=== PATIENT | female | born 1970 | race Caucasian/White ===

== ENCOUNTER 2016-12-02 22:06 | Emergency (ER) | payer MEDICAID ==
[2016-12-02] MEDS ORDERED: diphenhydrAMINE 50 MG/ML SDV IM ONE (22:18)
[2016-12-02] MEDS ORDERED: methylPREDNISolone Sodium Succinate 125 MG/2 ML SDV IM ONE (22:18)
--- NOTE | 2016-12-02 22:22 | EDM.PDOC ---
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 arm all swollen. also few weeks h/o throat problems Right Upper Arm Pain Score (Numeric/FACES): 3 - Related Data Allergies Allergy/AdvReac Type Severity Reaction Status Date / Time aspirin Allergy Swelling Verified 06/20/16 10:45 Penicillins Allergy Swelling Verified 06/20/16 10:45 tramadol Allergy Cannot Verified 06/20/16 10:45 Remember Home Meds: Home Meds Paliperidone [Invega] 12 mg PO DAILY 12/17/13 [History] buPROPion [Wellbutrin] 450 mg PO DAILY 12/17/13 [History] Albuterol [Proventil HFA] 2 puff INH ASDIRECTED PRN 03/21/15 [History] Benztropine Mesylate 1 mg PO TID 03/21/15 [History] DULoxetine [Cymbalta] 120 mg PO DAILY 03/21/15 [History] Pantoprazole [Protonix] 40 mg PO ACBREAKFAST 03/21/15 [History] QUEtiapine [SEROquel XR] 800 mg PO BEDTIME 03/21/15 [History] tiZANidine [Zanaflex] 8 mg PO QID 03/21/15 [History] Amitriptyline [Elavil] 25 mg PO DAILY 05/22/16 [History] Ferrous Sulfate [Iron] 325 mg PO DAILY 05/22/16 [History] Meloxicam [Mobic] 7.5 mg PO DAILY 05/22/16 [History] busPIRone HCl [busPIRone] 30 mg PO BID 05/22/16 [History] Past Medical History - Past Health History Medical/Surgical History: Denies Medical/Surgical History Cardiovascular History: Reports: Heart Failure Respiratory History: Reports: Asthma, Bronchitis, Recurrent, COPD, Intubation, Previous, Pneumonia, Recurrent Gastrointestinal History: Reports: Cholelithiasis, GERD, Other (See Below) Other Gastrointestinal History: Has diarrhea all the time. 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 Endocrine/Metabolic History: Reports: Obesity/BMI 30+ Hematologic History: Reports: None Immunologic History: Reports: None Oncologic (Cancer) History: Reports: None Dermatologic History: Reports: None - Infectious Disease History Infectious Disease History: Reports: Chicken Pox - Past Surgical History GI Surgical History: Reports: Cholecystectomy, Colonoscopy Other Musculoskeletal Surgeries/Procedures:: Rt. fx. arm Social & Family History - Family History Cardiac: Reports: CAD, Heart Failure, High Cholesterol, Hypertension, [place] Other Cardiac Family History: Dad GI: Reports: Cholelithiasis Psychiatric: Reports: Depression, Suicide Attempt, Other (See Below) Other Psychiatric Family History: entire family Endocrine/Metabolic: Reports: Diabetes, type II, Obesity/MBI 30+ Other Endocrine/Metabolic Family History: Dad and sister. Oncologic: Reports: Breast Other Oncologic Family History: aunt breast , dad stomach ca - Tobacco Use Smoking Status *Q: Current Every Day Smoker Years of Tobacco use: 32 Packs/Tins Daily: 0.5 Second Hand Smoke Exposure: Yes - Caffeine Use Caffeine Use: Reports: Coffee, Energy Drinks, Soda, Tea - Alcohol Use Days Per Week of Alcohol Use: 0 - Recreational Drug Use Recreational Drug Use: No Drug Use in Last 12 Months: No Recreational Drug Type: Reports: Benzodiazepines, Oxycodone, Vicodin Recreational Drug Use Frequency: Patient Refuses To Answer (unable to answer) ED ROS GENERAL - Review of Systems Review Of Systems: ROS reveals no pertinent complaints other than HPI. ED EXAM, ANIMAL BITE - Physical Exam Exam: See Below Exam Limited By: No Limitations General Appearance: Alert, WD/WN, No Apparent Distress Ears: Hearing Grossly Normal Throat/Mouth: Normal Voice, No Airway Compromise, Inflammation Head: Atraumatic Neck: Non-Tender, Full Range of Motion Respiratory/Chest: No Respiratory Distress Cardiovascular: Regular Rate, Rhythm GI/Abdominal: Soft, Non-Tender Extremities: Other (right upper inner arm swollen erythema no lymphangitis, NV nwl) Neurological: Alert, Oriented, Normal Cognition, Normal Gait, No Motor/Sensory Deficits Psychiatric: Normal Affect, Normal Mood Skin Exam: Normal Color, Warm/Dry Course - Vital Signs Last Recorded V/S: Last Vital Signs Temp 36.1 C 12/02/16 22:13 Pulse 87 12/02/16 22:13 Resp 19 12/02/16 22:13 BP 139/76 12/02/16 22:13 Pulse Ox 98 12/02/16 22:13 - Orders/Labs/Meds Orders: Active Orders 24 hr Category Date Time Status CULTURE STREP A CONFIRMATION [RM] Stat Lab 12/02/16 22:16 Results STREP SCRN A RAPID W CULT CONF [RM] Stat Lab 12/02/16 22:16 Results Meds: Medications Discontinued Medications Generic Name Dose Route Start Last Admin Trade Name Freq PRN Reason Stop Dose Admin Diphenhydramine HCl 50 mg 12/02/16 22:18 12/02/16 22:41 Benadryl IM 12/02/16 22:19 50 mg ONETIME ONE Administration Methylprednisolone Sodium Succinate 125 mg 12/02/16 22:18 12/02/16 22:41 Solu-Medrol IM 12/02/16 22:19 125 mg ONETIME ONE Administration - Re-Assessments/Exams Free Text/Narrative Re-Assessment/Exam: 12/02/16 22:57 results discussed with pt. Departure - Departure Time of Disposition: 22:59 Disposition: Home, Self-Care 01 Condition: Good Clinical Impression: Bee sting reaction Qualifiers: Encounter type: initial encounter Injury intent: accidental or unintentional Qualified Code(s): T63.441A - Toxic effect of venom of bees, accidental ( unintentional), initial encounter - Discharge Information Instructions: Insect Bite, [id number] Forms: ED Department Discharge Additional Instructions: 1) continue medications 2) follow up with family doctor 3) recheck as needed rx given; medrol dospak benadryl 50mg bid phenergan codeine syrup qid prn x 4oz - My Orders Last 24 Hours: My Active Orders 12/02/16 22:16 CULTURE STREP A CONFIRMATION [RM] Stat STREP SCRN A RAPID W CULT CONF [RM] Stat - Assessment/Plan Last 24 Hours: My Active Orders 12/02/16 22:16 CULTURE STREP A CONFIRMATION [RM] Stat STREP SCRN A RAPID W CULT CONF [RM] Stat
[2016-12-02 22:28] VITALS: BP 139/76
== END 2016-12-02 23:06 | disposition home or self-care (01) ==
LOC: DL.ED 22:06
DX: T63.441A Toxic effect of venom of bees, accidental (unintentional), initial encounter (principal); I50.9 Heart failure, unspecified; J44.9 Chronic obstructive pulmonary disease, unspecified; K21.9 Gastro-esophageal reflux disease without esophagitis; M19.90 Unspecified osteoarthritis, unspecified site; F32.9 Major depressive disorder, single episode, unspecified; E66.9 Obesity, unspecified; F17.210 Nicotine dependence, cigarettes, uncomplicated; Z90.49 Acquired absence of other specified parts of digestive tract; Z98.890 Other specified postprocedural states; Z79.899 Other long term (current) drug therapy; Z88.0 Allergy status to penicillin; Z88.5 Allergy status to narcotic agent; Z88.6 Allergy status to analgesic agent
CPT/HCPCS: 87081; 87430; 96372; 99283; J1200; J2930

== ENCOUNTER 2017-03-21 13:32 | Emergency (ER) | payer MEDICAID ==
[2017-03-21 13:59] VITALS: BP 125/68
== END 2017-03-21 15:21 | disposition left against medical advice (07) ==
LOC: DL.ED 13:32
DX: Z53.21 Procedure and treatment not carried out due to patient leaving prior to being seen by health care provider (principal)

== ENCOUNTER 2017-03-21 21:50 | Emergency (ER) | payer MEDICAID ==
--- NOTE | 2017-03-21 22:33 | EDM.PDOC ---
ED HPI GENERAL MEDICAL PROBLEM - General Chief Complaint: Skin Complaint Stated Complaint: SPIDER BITE ON LEG, [id number] Time Seen by Provider: 03/21/17 22:00 Source of Information: Reports: Patient, Correction Records History Limitations: Reports: No Limitations - History of Present Illness INITIAL COMMENTS - FREE TEXT/NARRATIVE: Kori reports a spider bite noticed three days ago on March 18. It started as a small bump that has grown in size and is increasingly painful and pruritic with shooting pain aggravated by rubbing on clothing. Her boyfriend squeezed it today and expressed blood but no pus. Denies fever, chills, and malaise. Onset: Gradual Onset Date: 03/18/17 Duration: Getting Worse Location: Reports: Lower Extremity, Left Quality: Reports: Other Severity: Moderate Improves with: Reports: None Worsens with: Reports: Other Associated Symptoms: Reports: No Other Symptoms Treatments PHARMACY CARE COORDINATOR: Reports: NSAIDS Left Upper Leg Pain Score (Numeric/FACES): 6 - Related Data Allergies Allergy/AdvReac Type Severity Reaction Status Date / Time aspirin Allergy Swelling Verified 03/21/17 22:00 Penicillins Allergy Swelling Verified 03/21/17 22:00 tramadol Allergy Cannot Verified 03/21/17 22:00 Remember Home Meds: Home Meds Paliperidone [Invega] 12 mg PO DAILY 12/17/13 [History] buPROPion [Wellbutrin] 450 mg PO DAILY 12/17/13 [History] Albuterol [Proventil HFA] 2 puff INH ASDIRECTED PRN 03/21/15 [History] Benztropine Mesylate 1 mg PO TID 03/21/15 [History] DULoxetine [Cymbalta] 120 mg PO DAILY 03/21/15 [History] Pantoprazole [Protonix] 40 mg PO ACBREAKFAST 03/21/15 [History] QUEtiapine [SEROquel XR] 800 mg PO BEDTIME 03/21/15 [History] tiZANidine [Zanaflex] 8 mg PO QID 03/21/15 [History] Amitriptyline [Elavil] 25 mg PO DAILY 05/22/16 [History] Ferrous Sulfate [Iron] 325 mg PO DAILY 05/22/16 [History] Meloxicam [Mobic] 7.5 mg PO DAILY 05/22/16 [History] busPIRone HCl [busPIRone] 30 mg PO BID 05/22/16 [History] Past Medical History - Past Health History Medical/Surgical History: Denies Medical/Surgical History Cardiovascular History: Reports: Heart Failure Respiratory History: Reports: Asthma, Bronchitis, Recurrent, COPD, Intubation, Previous, Pneumonia, Recurrent Gastrointestinal History: Reports: Cholelithiasis, GERD, Other (See Below) Other Gastrointestinal History: Has diarrhea all the time. 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 Endocrine/Metabolic History: Reports: Obesity/BMI 30+ Hematologic History: Reports: None Immunologic History: Reports: None Oncologic (Cancer) History: Reports: None Dermatologic History: Reports: None - Infectious Disease History Infectious Disease History: Reports: Chicken Pox - Past Surgical History GI Surgical History: Reports: Cholecystectomy, Colonoscopy Female Surgical History: Reports: Section Other Musculoskeletal Surgeries/Procedures:: Rt. fx. arm Social & Family History - Family History Cardiac: Reports: CAD, Heart Failure, High Cholesterol, Hypertension, [place] Other Cardiac Family History: Dad GI: Reports: Cholelithiasis Psychiatric: Reports: Depression, Suicide Attempt, Other (See Below) Other Psychiatric Family History: entire family Endocrine/Metabolic: Reports: Diabetes, type II, Obesity/MBI 30+ Other Endocrine/Metabolic Family History: Dad and sister. Oncologic: Reports: Breast Other Oncologic Family History: aunt breast , dad stomach ca - Tobacco Use Smoking Status *Q: Current Every Day Smoker Years of Tobacco use: 22 Packs/Tins Daily: 1 Second Hand Smoke Exposure: Yes - Caffeine Use Caffeine Use: Reports: Soda - Alcohol Use Days Per Week of Alcohol Use: 1 Number of Drinks Per Day: 1 Total Drinks Per Week: 1 - Recreational Drug Use Recreational Drug Use: No Drug Use in Last 12 Months: No Recreational Drug Type: Reports: Benzodiazepines, Oxycodone, Vicodin Recreational Drug Use Frequency: Patient Refuses To Answer (unable to answer) ED ROS GENERAL - Review of Systems Review Of Systems: ROS reveals no pertinent complaints other than HPI. ED EXAM, SKIN/RASH Exam: See Below Exam Limited By: No Limitations General Appearance: Alert, WD/WN, No Apparent Distress, Obese Respiratory/Chest: No Respiratory Distress, Lungs Clear, Normal Breath Sounds, No Accessory Muscle Use, Chest Non-Tender Cardiovascular: Normal Peripheral Pulses, Regular Rate, Rhythm, No Edema, No Gallop, No JVD, No Murmur, No Rub Neurological: Alert, Normal Cognition Skin: Increased Warmth, Rash, Other (22 cm x 9.5 cm area of erythema on proximal left thigh with clear margins. Central punctum with epidermal erosion overlying tender induration measuring 5 cm x 3 cm; no drainage or bleeding. Indurated area is TTP. Culture obtained with swab after disinfecting surrounding skin with betadine.) Location, Skin: Lower Extremity, Left Characteristics: Erythematous Associated features: Warmth, Tenderness, Swelling, Induration Course - Vital Signs Last Recorded V/S: Last Vital Signs Temp 97.1 F 03/21/17 21:56 Pulse 87 03/21/17 21:56 Resp 20 03/21/17 21:56 BP 136/74 03/21/17 21:56 Pulse Ox 98 03/21/17 21:56 - Orders/Labs/Meds Orders: Active Orders 24 hr Category Date Time Status CULTURE WOUND [RM] Stat Lab 03/21/17 22:17 Received Meds: Medications Discontinued Medications Generic Name Dose Route Start Last Admin Trade Name Gayathri PRN Reason Stop Dose Admin Doxycycline Hyclate 100 mg 03/21/17 22:44 Vibramycin PO 03/21/17 22:45 ONETIME ONE - Re-Assessments/Exams Free Text/Narrative Re-Assessment/Exam: 03/21/17 22:57 Assessment and documentation of patient reviewed. I agree with treatment plan. Departure - Departure Time of Disposition: 22:51 Disposition: Home, Self-Care 01 Condition: Good Clinical Impression: Abscess - Discharge Information Instructions: Abscess Forms: ED Department Discharge Additional Instructions: Doxycycline 100mg twice daily 14 days Hot pack continue over counter aleve per package instructions Follow up in clinic tomorrow () - Assessment/Plan Assessment:: Subcutaneous abscess with I&D indicated. Plan: Will first treat with doxycycline 100 mg BID 14 days with first dose tonight in the ED. Follow up with me tomorrow, March 22, in clinic for I&D. She asked if she could see her PCP, and I told her yes with advice to drain tomorrow or Sunday. Apply heating pad and take OTC Alleve for pain control. She understood and agreed to this plan.
[2017-03-21] MEDS ORDERED: Doxycycline 100 MG Cap PO ONE (22:44)
[2017-03-21 22:59] VITALS: BP 138/80
== END 2017-03-21 23:01 | disposition home or self-care (01) ==
LOC: DL.ED 21:50
DX: L02.416 Cutaneous abscess of left lower limb (principal); F17.210 Nicotine dependence, cigarettes, uncomplicated; I50.9 Heart failure, unspecified; J44.9 Chronic obstructive pulmonary disease, unspecified; K21.9 Gastro-esophageal reflux disease without esophagitis; F32.9 Major depressive disorder, single episode, unspecified; Z79.899 Other long term (current) drug therapy; Z88.0 Allergy status to penicillin; Z88.5 Allergy status to narcotic agent; Z88.6 Allergy status to analgesic agent
CPT/HCPCS: 87070; 99283; A9270

== ENCOUNTER 2017-05-30 00:47 | Emergency (ER) | payer MEDICAID ==
[2017-05-30] MEDS: methylPREDNISolone Sodium Succinate 125 MG/2 ML SDV IVPUSH ONE (00:56)
[2017-05-30 01:02] VITALS: BP 127/60
[2017-05-30 01:25] LABS: CHLORIDE,CL 100 mmol/L (101-111); SODIUM,NA 135 mmol/L (135-145)
--- NOTE | 2017-05-30 01:26 | EDM.PDOC ---
ED HPI GENERAL MEDICAL PROBLEM - General Chief Complaint: Respiratory Problem Stated Complaint: IN BY AMBULANCE Time Seen by Provider: 05/30/17 00:50 Source of Information: Reports: Patient, EMS History Limitations: Reports: No Limitations - History of Present Illness INITIAL COMMENTS - FREE TEXT/NARRATIVE: ED via [facility] with c/o of difficulty breathing with onset approximately 20 minutes prior. Hx of asthma, Duoneb and Albuterol nebulizer given by EMS, patient reports improvement in breathing, Spouse notes attack may have been triggered by a "Raid Bomb released earlier". Onset: Today - Related Data Allergies Allergy/AdvReac Type Severity Reaction Status Date / Time aspirin Allergy Swelling Verified 05/30/17 00:53 Penicillins Allergy Swelling Verified 05/30/17 00:53 tramadol Allergy Cannot Verified 05/30/17 00:53 Remember Home Meds: Home Meds Paliperidone [Invega] 12 mg PO DAILY 12/17/13 [History] Albuterol [Proventil HFA] 2 puff INH ASDIRECTED PRN 03/21/15 [History] Benztropine Mesylate 1 mg PO TID 03/21/15 [History] DULoxetine [Cymbalta] 120 mg PO DAILY 03/21/15 [History] Pantoprazole [Protonix] 40 mg PO ACBREAKFAST 03/21/15 [History] QUEtiapine [SEROquel XR] 800 mg PO BEDTIME 03/21/15 [History] tiZANidine [Zanaflex] 8 mg PO QID 03/21/15 [History] Ferrous Sulfate [Iron] 325 mg PO DAILY 05/22/16 [History] Meloxicam [Mobic] 7.5 mg PO DAILY 05/22/16 [History] busPIRone HCl [busPIRone] 30 mg PO BID 05/22/16 [History] Past Medical History - Past Health History Medical/Surgical History: Denies Medical/Surgical History Cardiovascular History: Reports: Heart Failure Respiratory History: Reports: Asthma, Bronchitis, Recurrent, COPD, Intubation, Previous, Pneumonia, Recurrent Gastrointestinal History: Reports: Cholelithiasis, GERD, Other (See Below) Other Gastrointestinal History: Has diarrhea all the time. 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 Endocrine/Metabolic History: Reports: Obesity/BMI 30+ Hematologic History: Reports: None Immunologic History: Reports: None Oncologic (Cancer) History: Reports: None Dermatologic History: Reports: None - Infectious Disease History Infectious Disease History: Reports: Chicken Pox - Past Surgical History GI Surgical History: Reports: Cholecystectomy, Colonoscopy Female Surgical History: Reports: Section Other Musculoskeletal Surgeries/Procedures:: Rt. fx. arm Social & Family History - Family History Cardiac: Reports: CAD, Heart Failure, High Cholesterol, Hypertension, [place] Other Cardiac Family History: Dad GI: Reports: Cholelithiasis Psychiatric: Reports: Depression, Suicide Attempt, Other (See Below) Other Psychiatric Family History: entire family Endocrine/Metabolic: Reports: Diabetes, type II, Obesity/MBI 30+ Other Endocrine/Metabolic Family History: Dad and sister. Oncologic: Reports: Breast Other Oncologic Family History: aunt breast , dad stomach ca - Tobacco Use Smoking Status *Q: Current Every Day Smoker Years of Tobacco use: 39 Packs/Tins Daily: 1 Second Hand Smoke Exposure: Yes - Caffeine Use Caffeine Use: Reports: Soda - Alcohol Use Days Per Week of Alcohol Use: 1 Number of Drinks Per Day: 1 Total Drinks Per Week: 1 - Recreational Drug Use Recreational Drug Use: No Drug Use in Last 12 Months: No Recreational Drug Type: Reports: Benzodiazepines, Oxycodone, Vicodin Recreational Drug Use Frequency: Patient Refuses To Answer (unable to answer) ED ROS GENERAL - Review of Systems Review Of Systems: See Below Constitutional: Denies: Fever HEENT: Reports: No Symptoms Respiratory: Reports: Shortness of Breath, Wheezing Cardiovascular: Reports: No Symptoms GI/Abdominal: Reports: No Symptoms Psychiatric: Reports: Anxiety ED EXAM, GENERAL - Physical Exam Exam: See Below Exam Limited By: No Limitations General Appearance: Alert, Mild Distress Ears: Normal External Exam Nose: Normal Inspection Throat/Mouth: Normal Voice (able to talk full sentences) Head: Atraumatic, Normocephalic Neck: Normal Inspection, Full Range of Motion Respiratory/Chest: No Respiratory Distress, Lungs Clear, Decreased Breath Sounds (bases), Wheezing (fine expiratory mid right) Cardiovascular: Normal Peripheral Pulses, Regular Rate, Rhythm, Tachycardia Neurological: Alert, Oriented Psychiatric: Anxious Skin Exam: Warm, Dry, Intact, Ecchymosis (back of arms above elbows bilaterally) Course - Vital Signs Last Recorded V/S: Last Vital Signs Temp 98.7 F 05/30/17 00:48 Pulse 116 H 05/30/17 00:48 Resp 20 05/30/17 00:48 BP 127/60 05/30/17 01:01 Pulse Ox 98 05/30/17 00:48 - Orders/Labs/Meds Labs: Laboratory Tests 05/30/17 05/30/17 Range/Units 01:00 01:00 WBC 12.0 H (5.0-10.0) 10^3/uL RBC 4.57 (4.2-5.4) 10^6/uL Hgb 14.1 D (12.0-16.0) g/dL Hct 40.3 (37.0-47.0) % MCV 88.2 D (80-100) fL MCH 30.9 (27.0-34.0) pg MCHC 35.0 (33.0-35.0) g/dL Plt Count 153 D (150-450) 10^3/uL Neut % (Auto) 65.2 (42.2-75.2) % Lymph % (Auto) 25.7 (20.5-50.1) % [place] % (Auto) 7.3 (2-8) % Eos % (Auto) 1.6 (1.0-3.0) % Baso % (Auto) 0.2 (0.0-1.0) % Sodium 135 (135-145) mmol/L Potassium 3.5 L D (3.6-5.0) mmol/L Chloride 100 L (101-111) mmol/L Carbon Dioxide 24.0 (21.0-31.0) mmol/L Anion Gap 14.5 BUN 9 (7-18) mg/dL Creatinine 0.7 D (0.6-1.3) mg/dL Est Cr Clr Drug Dosing 86.72 mL/min Estimated GFR (MDRD) > 60 BUN/Creatinine Ratio 12.85 Glucose 171 H (74-105) mg/dL Calcium 8.3 L (8.4-10.2) mg/dl Total Bilirubin 0.5 (0.2-1.0) mg/dL AST 63 H (10-42) IU/L ALT 65 H (10-60) IU/L Alkaline Phosphatase 91 (42-121) IU/L Total Protein 6.7 (6.7-8.2) g/dl Albumin 3.7 (3.2-5.5) g/dl Globulin 3.0 Albumin/Globulin Ratio 1.23 Meds: Medications Discontinued Medications Generic Name Dose Route Start Last Admin Trade Name Freq PRN Reason Stop Dose Admin Methylprednisolone Sodium Succinate 125 mg 05/30/17 00:53 05/30/17 00:56 Solu-Medrol IVPUSH 05/30/17 00:54 125 mg ONETIME ONE Administration - Radiology Interpretation Free Text/Narrative:: CXR negative Departure - Departure Time of Disposition: 01:38 Disposition: Home, Self-Care 01 Condition: Good Clinical Impression: Exacerbation of asthma Qualifiers: Asthma severity: moderate Asthma persistence: unspecified Qualified Code(s): J45.901 - Unspecified asthma with (acute) exacerbation - Discharge Information Instructions: Asthma, Adult, [id number] Referrals: Angel Blue MD [Primary Care Provider] - Forms: ED Department Discharge Additional Instructions: Albuterol neb every 4 hours as needed open window to air area out if odor from Raid lingers Prednisone 20mg daily for 3 days
== END 2017-05-30 01:50 | disposition home or self-care (01) ==
LOC: DL.ED 00:47
DX: J45.901 Unspecified asthma with (acute) exacerbation (principal); I50.9 Heart failure, unspecified; F17.210 Nicotine dependence, cigarettes, uncomplicated; Z88.6 Allergy status to analgesic agent; Z88.0 Allergy status to penicillin; Z88.5 Allergy status to narcotic agent; Z79.899 Other long term (current) drug therapy
CPT/HCPCS: 36415; 71045; 80053; 85025; 96374; 99285; J2930

== ENCOUNTER 2019-01-18 17:14 | Emergency (ER) | payer MEDICAID ==
[2019-01-18 17:32] VITALS: BP 158/69; PULSE 75
--- NOTE | 2019-01-18 17:55 | EDM.PDOC ---
ED HPI GENERAL MEDICAL PROBLEM - General Chief Complaint: Skin Complaint Stated Complaint: Skin/Hair infection Time Seen by Provider: 01/18/19 17:30 Source of Information: Reports: Patient, RN, RN Notes Reviewed History Limitations: Reports: No Limitations - History of Present Illness INITIAL COMMENTS - FREE TEXT/NARRATIVE: Patient presents to ER by POV with what she thinks is mites. She combed out hair and found something in it. Her head is itchy, was seen in clinic . Onset: Gradual Duration: Getting Worse Location: Reports: Head Severity: Mild Improves with: Reports: None Worsens with: Reports: None Associated Symptoms: Reports: No Other Symptoms - Related Data Allergies Allergy/AdvReac Type Severity Reaction Status Date / Time aspirin Allergy Swelling Verified 01/18/19 17:24 Penicillins Allergy Swelling Verified 01/18/19 17:24 tramadol Allergy Cannot Verified 01/18/19 17:24 Remember Home Meds: Home Meds Paliperidone [Invega] 12 mg PO DAILY 12/17/13 [History] Albuterol [Proventil HFA] 2 puff INH ASDIRECTED PRN 03/21/15 [History] Benztropine Mesylate 1 mg PO TID 03/21/15 [History] DULoxetine [Cymbalta] 120 mg PO DAILY 03/21/15 [History] Pantoprazole [Protonix] 40 mg PO ACBREAKFAST 03/21/15 [History] QUEtiapine [SEROquel XR] 800 mg PO BEDTIME 03/21/15 [History] tiZANidine [Zanaflex] 8 mg PO QID 03/21/15 [History] Ferrous Sulfate [Iron] 325 mg PO DAILY 05/22/16 [History] Meloxicam [Mobic] 7.5 mg PO DAILY 05/22/16 [History] busPIRone HCl [busPIRone] 30 mg PO BID 05/22/16 [History] Past Medical History - Past Health History Medical/Surgical History: Denies Medical/Surgical History Cardiovascular History: Reports: Heart Failure, Hypertension Respiratory History: Reports: Asthma, Bronchitis, Recurrent, COPD, Intubation, Previous, Pneumonia, Recurrent Gastrointestinal History: Reports: Cholelithiasis, GERD, Other (See Below) Other Gastrointestinal History: Has diarrhea all the time. 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 Endocrine/Metabolic History: Reports: Obesity/BMI 30+ Hematologic History: Reports: None Immunologic History: Reports: None Oncologic (Cancer) History: Reports: None Dermatologic History: Reports: None - Infectious Disease History Infectious Disease History: Reports: Chicken Pox - Past Surgical History Head Surgeries/Procedures: Reports: None HEENT Surgical History: Reports: Tonsillectomy GI Surgical History: Reports: Cholecystectomy, Colonoscopy Female Surgical History: Reports: Section Other Musculoskeletal Surgeries/Procedures:: Rt. fx. arm Social & Family History - Family History Family Medical History: Noncontributory Cardiac: Reports: CAD, Heart Failure, High Cholesterol, Hypertension, [place] Other Cardiac Family History: Dad GI: Reports: Cholelithiasis Psychiatric: Reports: Depression, Suicide Attempt, Other (See Below) Other Psychiatric Family History: entire family Endocrine/Metabolic: Reports: Diabetes, type II, Obesity/MBI 30+ Other Endocrine/Metabolic Family History: Dad and sister. Oncologic: Reports: Breast Other Oncologic Family History: aunt breast , dad stomach ca - Tobacco Use Smoking Status *Q: Heavy Tobacco Smoker Years of Tobacco use: 37 Packs/Tins Daily: 2 - Caffeine Use Caffeine Use: Reports: Soda - Alcohol Use Days Per Week of Alcohol Use: 1 Number of Drinks Per Day: 3 Total Drinks Per Week: 3 - Recreational Drug Use Recreational Drug Use: Yes Drug Use in Last 12 Months: Yes Recreational Drug Type: Reports: Cocaine, Methamphetamine Recreational Drug Use Frequency: Weekly - Living Situation & Occupation Living situation: Reports: Other (with friends) Occupation: Unemployed ED ROS GENERAL - Review of Systems Review Of Systems: ROS reveals no pertinent complaints other than HPI. ED EXAM, SKIN/RASH Exam: See Below Exam Limited By: No Limitations General Appearance: Alert, WD/WN, No Apparent Distress, Obese Ears: Normal External Exam, Normal Canal, Hearing Grossly Normal, Normal TMs Nose: Normal Inspection Throat/Mouth: Normal Inspection Head: Atraumatic, Normocephalic, Other (Hair thinning, scattered scalp folliculitis with honey crusted surfaces. Pt has loose hair in a plastic bag that appear to have some mites or other similar arthropods in it.) Neck: Normal Inspection, Supple, Non-Tender, Full Range of Motion. No: Lymphadenopathy (L), Lymphadenopathy (R) Respiratory/Chest: No Respiratory Distress Neurological: Alert, Oriented, No Motor/Sensory Deficits Psychiatric: Normal Mood, Anxious Course - Vital Signs Last Recorded V/S: Last Vital Signs Temp 98.5 F 01/18/19 17:31 Pulse 75 01/18/19 17:31 Resp 18 01/18/19 17:31 BP 158/69 H 01/18/19 17:31 Pulse Ox 97 01/18/19 17:31 Departure - Departure Time of Disposition: 17:50 Disposition: Home, Self-Care 01 Condition: Good Clinical Impression: Infection of scalp Arthropod bite of scalp Qualifiers: Encounter type: initial encounter Qualified Code(s): S00.06XA - Insect bite ( nonvenomous) of scalp, initial encounter - Discharge Information *PRESCRIPTION DRUG MONITORING PROGRAM REVIEWED*: No *COPY OF PRESCRIPTION DRUG MONITORING REPORT IN PATIENT FELIPE: No Instructions: Folliculitis Forms: ED Department Discharge Additional Instructions: Rx: Permethrin 5% Rx: Clindamycin 300mg Follow up in clinic in 10 to 12 days for recheck.
== END 2019-01-18 17:57 | disposition home or self-care (01) ==
LOC: DL.ED 17:14
DX: S00.06XA Insect bite (nonvenomous) of scalp, initial encounter (principal); L08.9 Local infection of the skin and subcutaneous tissue, unspecified; J45.909 Unspecified asthma, uncomplicated; I10 Essential (primary) hypertension; E66.9 Obesity, unspecified; K21.9 Gastro-esophageal reflux disease without esophagitis; F41.9 Anxiety disorder, unspecified; F32.9 Major depressive disorder, single episode, unspecified; F17.210 Nicotine dependence, cigarettes, uncomplicated; Z88.6 Allergy status to analgesic agent; Z88.0 Allergy status to penicillin; Z88.5 Allergy status to narcotic agent; Z68.41 Body mass index [BMI] 40.0-44.9, adult; W57.XXXA Bitten or stung by nonvenomous insect and other nonvenomous arthropods, initial encounter
CPT/HCPCS: 99282

== ENCOUNTER 2019-06-18 04:01 | Emergency (ER) | payer MEDICAID ==
[2019-06-18 04:11] VITALS: BP 115/90; PULSE 87
[2019-06-18] MEDS ORDERED: Acetaminophen 325 MG Tab PO ONE (04:29)
--- NOTE | 2019-06-18 04:29 | EDM.PDOC ---
ED HPI GENERAL MEDICAL PROBLEM - General Chief Complaint: ENT Problem Stated Complaint: EAR AND NECK PAIN Time Seen by Provider: 06/18/19 04:15 Source of Information: Reports: Patient History Limitations: Reports: No Limitations - History of Present Illness INITIAL COMMENTS - FREE TEXT/NARRATIVE: ED with c/o left ear pain, present x 1 month worse tonight, Admits worried it is a parasite. Reports severe fear of any type of bugs, abrasions over face and left outer ear she reports are from scrubbing to hard after friend was in her home that had lice. Pain tonight on left side of neck, took tylenol last at 3 pm. Hx of schizophrenia. Reports she is on her medications and taking like she is supposed to. No fever chills or cough Treatments SOLE ROUGHER: Reports: Acetaminophen Left Ear Pain Score (Numeric/FACES): 5 - Related Data Allergies Allergy/AdvReac Type Severity Reaction Status Date / Time aspirin Allergy Swelling Verified 06/18/19 04:17 Penicillins Allergy Swelling Verified 06/18/19 04:17 tramadol Allergy Cannot Verified 06/18/19 04:17 Remember Home Meds: Home Meds Paliperidone [Invega] 12 mg PO DAILY 12/17/13 [History] Albuterol [Proventil HFA] 2 puff INH ASDIRECTED PRN 03/21/15 [History] Benztropine Mesylate 1 mg PO TID 03/21/15 [History] DULoxetine [Cymbalta] 120 mg PO DAILY 03/21/15 [History] Pantoprazole [Protonix] 40 mg PO ACBREAKFAST 03/21/15 [History] QUEtiapine [SEROquel XR] 800 mg PO BEDTIME 03/21/15 [History] tiZANidine [Zanaflex] 8 mg PO QID 03/21/15 [History] Ferrous Sulfate [Iron] 325 mg PO DAILY 05/22/16 [History] Meloxicam [Mobic] 7.5 mg PO DAILY 05/22/16 [History] busPIRone HCl [busPIRone] 30 mg PO BID 05/22/16 [History] Past Medical History - Past Health History Medical/Surgical History: Denies Medical/Surgical History Cardiovascular History: Reports: Heart Failure, Hypertension Respiratory History: Reports: Asthma, Bronchitis, Recurrent, COPD, Intubation, Previous, Pneumonia, Recurrent Gastrointestinal History: Reports: Cholelithiasis, GERD, Other (See Below) Other Gastrointestinal History: Has diarrhea all the time. 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 Endocrine/Metabolic History: Reports: Obesity/BMI 30+ Hematologic History: Reports: None Immunologic History: Reports: None Oncologic (Cancer) History: Reports: None Dermatologic History: Reports: None - Infectious Disease History Infectious Disease History: Reports: Chicken Pox - Past Surgical History Head Surgeries/Procedures: Reports: None HEENT Surgical History: Reports: Tonsillectomy GI Surgical History: Reports: Cholecystectomy, Colonoscopy Female Surgical History: Reports: Section Other Musculoskeletal Surgeries/Procedures:: Rt. fx. arm Social & Family History - Family History Family Medical History: Noncontributory Cardiac: Reports: CAD, Heart Failure, High Cholesterol, Hypertension, [place] Other Cardiac Family History: Dad GI: Reports: Cholelithiasis Psychiatric: Reports: Depression, Suicide Attempt, Other (See Below) Other Psychiatric Family History: entire family Endocrine/Metabolic: Reports: Diabetes, type II, Obesity/MBI 30+ Other Endocrine/Metabolic Family History: Dad and sister. Oncologic: Reports: Breast Other Oncologic Family History: aunt breast , dad stomach ca - Tobacco Use Smoking Status *Q: Current Every Day Smoker Years of Tobacco use: 41 Packs/Tins Daily: 2 - Caffeine Use Caffeine Use: Reports: Soda - Recreational Drug Use Recreational Drug Use: Yes Drug Use in Last 12 Months: Yes Recreational Drug Type: Reports: Methamphetamine Recreational Drug Use Frequency: Not Used In Over 1 Month - Living Situation & Occupation Living situation: Reports: Other (with friends) Occupation: Unemployed ED ROS ENT - Review of Systems Review Of Systems: Comprehensive ROS is negative, except as noted in HPI. ED EXAM, ENT - Physical Exam Exam: See Below Exam Limited By: No Limitations General Appearance: Alert, No Apparent Distress Eye Exam: Bilateral Eye: EOMI Ears: Hearing Grossly Normal, Normal TMs, Auricular Tenderness (left), Canal Swelling (left), Other (left external ear abrasion, crusted, minimal errythema. no discharge from canal. ) Nose: Normal Inspection, Normal Mucousa Mouth/Throat: Normal Inspection Head: Atraumatic, Normocephalic, Facial Abrasions (scattered nose fore head and chin, crusted, no sign of infection) Neck: Full Range of Motion, Lymphadenopathy (L) Respiratory/Chest: No Respiratory Distress, Lungs Clear, Normal Breath Sounds Cardiovascular: Regular Rate, Rhythm Neurological: Alert, Oriented Psychiatric: Anxious Skin: Warm, Dry Course - Vital Signs Last Recorded V/S: Last Vital Signs Temp 96.8 F L 06/18/19 04:09 Pulse 87 06/18/19 04:09 Resp 19 06/18/19 04:09 BP 115/90 06/18/19 04:09 Pulse Ox 100 06/18/19 04:09 Departure - Departure Time of Disposition: 04:29 Disposition: Home, Self-Care 01 Condition: Good Clinical Impression: External otitis of left ear Qualifiers: Otitis externa type: unspecified type Chronicity: acute Qualified Code(s): H60.502 - Unspecified acute noninfective otitis externa, left ear - Discharge Information *PRESCRIPTION DRUG MONITORING PROGRAM REVIEWED*: No *COPY OF PRESCRIPTION DRUG MONITORING REPORT IN PATIENT FELIPE: No Instructions: Ear Drops, Adult, Otitis Externa, [id number] Additional Instructions: ofloxacin ear drops 1 to left ear daily for 10 days clinic follow up on Sunday if not improving tyelnol 650mg every 6 hours as needed for discomfort do not poke anything into ear Sepsis Event Note - Evaluation Sepsis Screening Result: No Definite Risk - Focused Exam Vital Signs: Vital Signs Temp Pulse Resp BP Pulse Ox 06/18/19 04:09 96.8 F L 87 19 115/90 100 Date Exam was Performed: 06/18/19 Time Exam was Performed: 04:23
== END 2019-06-18 04:36 | disposition home or self-care (01) ==
LOC: DL.ED 04:01
DX: S00.412A Abrasion of left ear, initial encounter (principal); H60.502 Unspecified acute noninfective otitis externa, left ear; I11.0 Hypertensive heart disease with heart failure; I50.9 Heart failure, unspecified; J44.9 Chronic obstructive pulmonary disease, unspecified; K21.9 Gastro-esophageal reflux disease without esophagitis; M19.90 Unspecified osteoarthritis, unspecified site; F41.9 Anxiety disorder, unspecified; F32.9 Major depressive disorder, single episode, unspecified; E66.9 Obesity, unspecified; Z68.37 Body mass index [BMI] 37.0-37.9, adult; F17.210 Nicotine dependence, cigarettes, uncomplicated; Z88.0 Allergy status to penicillin; Z88.8 Allergy status to other drugs, medicaments and biological substances; Z79.899 Other long term (current) drug therapy; X58.XXXA Exposure to other specified factors, initial encounter
CPT/HCPCS: 99283; A9270-GY

== ENCOUNTER 2019-07-12 18:29 | Emergency (ER) | payer MEDICAID ==
[2019-07-12 18:49] VITALS: BP 115/76; PULSE 86
== END 2019-07-12 18:48 | disposition left against medical advice (07) ==
LOC: DL.ED 18:29
DX: Z53.21 Procedure and treatment not carried out due to patient leaving prior to being seen by health care provider (principal)

== ENCOUNTER 2019-07-29 14:35 | Emergency (ER) | payer MEDICAID ==
[2019-07-29 14:58] VITALS: BP 157/86; PULSE 80
== END 2019-07-29 15:04 | disposition left against medical advice (07) ==
LOC: DL.ED 14:35
DX: Z53.21 Procedure and treatment not carried out due to patient leaving prior to being seen by health care provider (principal)

== ENCOUNTER 2019-08-22 11:41 | Emergency (ER) | payer MEDICAID ==
[2019-08-22 11:38] VITALS: BP 106/55; PULSE 55
[~2019-08-22 11:41] MED LIST: Sodium Chloride 0.9% 10 ML Syringe FLUSH PRN
--- NOTE | 2019-08-22 13:05 | EDM.PDOCBH ---
ED HPI GENERAL MEDICAL PROBLEM - General Chief Complaint: Behavioral/Psych Stated Complaint: AMBULANCE Time Seen by Provider: 08/22/19 11:42 Source of Information: Reports: Patient, RN, RN Notes Reviewed History Limitations: Reports: No Limitations - History of Present Illness INITIAL COMMENTS - FREE TEXT/NARRATIVE: Patient presents to ER per [place] ambulance service. Patient was at the [facility] getting an IM injection of Invega. Rightly after the IM injection, patient became dizzy, diaphoretic. Ambulance was called. Patient was transported to the ER. Upon arrival to the ER the dizziness has resolved as well as the diaphoresis. Patient complains of soreness of the left upper arm. Patient does have infection of the right hand. Had surgery several weeks ago to the right hand and had the right index finger removed. Sutures are still in the hand, area is open and 3 cm wide, 6 cm long. Some green purulent drainage from the right hand. Patient denies any fever chills, nausea/vomiting/diarrhea. Patient states she was somewhat short of breath when she first got the shot, states she does have anxiety, and this has resolved. Patient denies any chest pains. Patient has been noncompliant with the infection in her right hand, was to be following up with infectious diseases, and has not. Patient also has not followed up to have sutures removed postsurgically. Onset: Today, Sudden Right Hand Pain Score (Numeric/FACES): 7 - Related Data Allergies Allergy/AdvReac Type Severity Reaction Status Date / Time aspirin Allergy Swelling Verified 08/22/19 11:38 Penicillins Allergy Swelling Verified 08/22/19 11:38 tramadol Allergy Cannot Verified 08/22/19 11:38 Remember Home Meds: Home Meds Paliperidone [Invega] 12 mg PO DAILY 12/17/13 [History] Albuterol [Proventil HFA] 2 puff INH ASDIRECTED PRN 03/21/15 [History] Benztropine Mesylate 1 mg PO TID 03/21/15 [History] DULoxetine [Cymbalta] 120 mg PO DAILY 03/21/15 [History] Pantoprazole [Protonix] 40 mg PO ACBREAKFAST 03/21/15 [History] QUEtiapine [SEROquel XR] 800 mg PO BEDTIME 03/21/15 [History] tiZANidine [Zanaflex] 8 mg PO QID 03/21/15 [History] Ferrous Sulfate [Iron] 325 mg PO DAILY 05/22/16 [History] Meloxicam [Mobic] 7.5 mg PO DAILY 05/22/16 [History] busPIRone HCl [busPIRone] 30 mg PO BID 05/22/16 [History] Past Medical History - Past Health History Medical/Surgical History: Denies Medical/Surgical History Cardiovascular History: Reports: Heart Failure, Hypertension Respiratory History: Reports: Asthma, Bronchitis, Recurrent, COPD, Intubation, Previous, Pneumonia, Recurrent Gastrointestinal History: Reports: Cholelithiasis, GERD, Other (See Below) Other Gastrointestinal History: Has diarrhea all the time. 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 Endocrine/Metabolic History: Reports: Obesity/BMI 30+ Hematologic History: Reports: None Immunologic History: Reports: None Oncologic (Cancer) History: Reports: None Dermatologic History: Reports: None - Infectious Disease History Infectious Disease History: Reports: Chicken Pox - Past Surgical History Head Surgeries/Procedures: Reports: None HEENT Surgical History: Reports: Tonsillectomy GI Surgical History: Reports: Cholecystectomy, Colonoscopy Female Surgical History: Reports: Section Other Musculoskeletal Surgeries/Procedures:: Rt. fx. arm Social & Family History - Family History Family Medical History: Noncontributory Cardiac: Reports: CAD, Heart Failure, High Cholesterol, Hypertension, [place] Other Cardiac Family History: Dad GI: Reports: Cholelithiasis Psychiatric: Reports: Depression, Suicide Attempt, Other (See Below) Other Psychiatric Family History: entire family Endocrine/Metabolic: Reports: Diabetes, type II, Obesity/MBI 30+ Other Endocrine/Metabolic Family History: Dad and sister. Oncologic: Reports: Breast Other Oncologic Family History: aunt breast , dad stomach ca - Tobacco Use Smoking Status *Q: Current Every Day Smoker Years of Tobacco use: 20 Packs/Tins Daily: 1 Second Hand Smoke Exposure: No - Caffeine Use Caffeine Use: Reports: Soda - Recreational Drug Use Recreational Drug Use: Yes - Living Situation & Occupation Living situation: Reports: Other (with friends) Occupation: Unemployed ED ROS GENERAL - Review of Systems Review Of Systems: Comprehensive ROS is negative, except as noted in HPI. ED EXAM, BEHAVIORAL HEALTH - Physical Exam Exam: See Below Exam Limited By: No Limitations General Appearance: Alert, WD/WN, Anxious, Mild Distress Eye Exam: Bilateral Eye: EOMI, Normal Inspection Ears: Normal External Exam, Hearing Grossly Normal Nose: Normal Inspection Throat/Mouth: Normal Inspection, Normal Voice, No Airway Compromise Head: Atraumatic, Normocephalic Neck: Normal Inspection, Supple, Non-Tender, Full Range of Motion Respiratory/Chest: No Respiratory Distress, Lungs Clear, Normal Breath Sounds, No Accessory Muscle Use, Chest Non-Tender Cardiovascular: Normal Peripheral Pulses, Regular Rate, Rhythm, No Edema, No Gallop, No JVD, No Murmur, No Rub GI/Abdominal: Normal Bowel Sounds, Soft, Non-Tender (Female) Exam: Deferred Rectal (Female) Exam: Deferred Extremities: Normal Inspection, Normal Range of Motion, No Pedal Edema, Normal Capillary Refill, Arm Pain (Upper arm pain from IM injection) Neurological: Alert, CN II-XII Intact, Normal Cognition, Normal Gait, No Motor/ Sensory Deficits, Oriented x 3 Psychiatric: Alert, Oriented, Restless, Agitated, Paranoid Thoughts Skin Exam: Warm, Dry, Wound/incision (Wound to the right hand 6 cm long, 3 cm wide, sutures still intact from several weeks ago. Surrounding skin is erythematous with some induration. Wound has green/yellow minimal drainage, some mild granulation.) COURSE, BEHAVIORAL HEALTH COMP - Course Vital Signs: Last Vital Signs Temp 96.4 F L 08/22/19 11:28 Pulse 55 L 08/22/19 11:28 Resp 16 08/22/19 11:28 BP 106/55 L 08/22/19 11:28 Pulse Ox 100 08/22/19 11:28 Orders, Labs, Meds: Active Orders 24 hr Category Date Time Status Peripheral IV Care [RC] . DIRECTED Care 08/22/19 11:40 Active Blood Culture x2 Reflex Set [OM.PC] Stat Oth 08/22/19 11:40 Ordered Peripheral IV Insertion Adult [OM.PC] Stat Oth 08/22/19 11:39 Ordered Medications Discontinued Medications Generic Name Dose Route Start Last Admin Trade Name Freq PRN Reason Stop Dose Admin Sodium Chloride 10 ml 08/22/19 11:39 Saline Flush FLUSH ASDIRECTED PRN Keep Vein Open Discharge vs Psych Eval/Treatment:: 08/22/19 16:09 Patient refuses to let us draw blood work or put an IV in at this time. Patient was informed that we will not be screening her for drugs, the only way we screen for drugs is through her urine, and that we did not need her urine. Patient at that time did agree to let us draw blood and start an IV. Upon entrance to the room by nursing staff, patient declined again to have IV placed and lab work done. Patient states she still will be transferred to [place] , and will cooperate with that. Patient case with Dr. Carbajal at [facility] in [place] who agreed to accept the patient for transfer. Departure - Departure Time of Disposition: 12:57 Disposition: DC/Tfer to [facility] 02 Condition: Fair Clinical Impression: Anxiety, Wound infection - Discharge Information *PRESCRIPTION DRUG MONITORING PROGRAM REVIEWED*: No *COPY OF PRESCRIPTION DRUG MONITORING REPORT IN PATIENT FELIPE: No Referrals: PCP,None [Primary Care Provider] - Forms: ED Department Discharge, Interfacility Transfer [facility] Sepsis Event Note (ED) - Evaluation Sepsis Screening Result: No Definite Risk - Focused Exam Vital Signs: Vital Signs Temp Pulse Resp BP Pulse Ox 08/22/19 11:28 96.4 F L 55 L 16 106/55 L 100 - My Orders Last 24 Hours: My Active Orders 08/22/19 11:39 Peripheral IV Insertion Adult [OM.PC] Stat 08/22/19 11:40 Peripheral IV Care [RC] . DIRECTED Blood Culture x2 Reflex Set [OM.PC] Stat - Assessment/Plan Last 24 Hours: My Active Orders 08/22/19 11:39 Peripheral IV Insertion Adult [OM.PC] Stat 08/22/19 11:40 Peripheral IV Care [RC] . DIRECTED Blood Culture x2 Reflex Set [OM.PC] Stat
== END 2019-08-22 12:53 ==
LOC: DL.ED 11:41
DX: F41.9 Anxiety disorder, unspecified (principal); T81.49XA Infection following a procedure, other surgical site, initial encounter; I11.0 Hypertensive heart disease with heart failure; I50.9 Heart failure, unspecified; J44.9 Chronic obstructive pulmonary disease, unspecified; K21.9 Gastro-esophageal reflux disease without esophagitis; F32.9 Major depressive disorder, single episode, unspecified; E66.9 Obesity, unspecified; F43.10 Post-traumatic stress disorder, unspecified; F20.9 Schizophrenia, unspecified; F17.210 Nicotine dependence, cigarettes, uncomplicated; Z68.37 Body mass index [BMI] 37.0-37.9, adult; Z88.0 Allergy status to penicillin; Z88.6 Allergy status to analgesic agent; Z79.899 Other long term (current) drug therapy
CPT/HCPCS: 99285

== ENCOUNTER 2019-09-06 20:16 | Emergency (ER) | payer MEDICAID ==
[2019-09-06 20:35] VITALS: BP 119/69; PULSE 90
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
== END 2019-09-06 21:34 | disposition home or self-care (01) ==
LOC: DL.ED 20:16
DX: S61.411D Laceration without foreign body of right hand, subsequent encounter (principal); I11.0 Hypertensive heart disease with heart failure; I50.9 Heart failure, unspecified; K21.9 Gastro-esophageal reflux disease without esophagitis; M19.90 Unspecified osteoarthritis, unspecified site; F41.9 Anxiety disorder, unspecified; F32.9 Major depressive disorder, single episode, unspecified; E66.9 Obesity, unspecified; Z68.34 Body mass index [BMI] 34.0-34.9, adult; Z98.890 Other specified postprocedural states; Z88.8 Allergy status to other drugs, medicaments and biological substances; Z88.0 Allergy status to penicillin; Z88.5 Allergy status to narcotic agent; Z79.899 Other long term (current) drug therapy; X58.XXXD Exposure to other specified factors, subsequent encounter
CPT/HCPCS: 99281

== ENCOUNTER 2019-12-02 21:04 | Emergency (ER) | payer MEDICAID ==
[2019-12-02 21:45] VITALS: BP 125/62; PULSE 86
--- NOTE | 2019-12-02 22:37 | EDM.PDOC ---
ED HPI GENERAL MEDICAL PROBLEM - General Chief Complaint: ENT Problem Stated Complaint: BOTH OF THE EARS HURTING, LEFTSIDE OF HEAD NUMBING Time Seen by Provider: 12/02/19 22:00 Source of Information: Reports: Patient History Limitations: Reports: No Limitations - History of Present Illness INITIAL COMMENTS - FREE TEXT/NARRATIVE: ED with c/o 3 day hx of bilateral ear pain left greater, bump behind left ear and ear feels funny. Tried blowing "smole in hear and didn't help. Has not been seen in clinic. Admits recent meth use. States using less than she has in past. Appointment scheduled this week with PCP to renew medications. Denies fever. no cough or SOB. Left Ear Pain Score (Numeric/FACES): 7 - Related Data Allergies Allergy/AdvReac Type Severity Reaction Status Date / Time aspirin Allergy Swelling Verified 12/02/19 21:51 Penicillins Allergy Swelling Verified 12/02/19 21:51 tramadol Allergy Cannot Verified 12/02/19 21:51 Remember Home Meds: Home Meds Paliperidone [Invega] 12 mg SQ ASDIRECTED 12/17/13 [History] Benztropine Mesylate 1 mg PO TID 03/21/15 [History] DULoxetine [Cymbalta] 120 mg PO DAILY 03/21/15 [History] Pantoprazole [Protonix] 40 mg PO ACBREAKFAST 03/21/15 [History] tiZANidine [Zanaflex] 8 mg PO QID 03/21/15 [History] busPIRone HCl [busPIRone] 30 mg PO BID 05/22/16 [History] Past Medical History - Past Health History Medical/Surgical History: Denies Medical/Surgical History Cardiovascular History: Reports: Heart Failure, Hypertension Respiratory History: Reports: Asthma, Bronchitis, Recurrent, COPD, Intubation, Previous, Pneumonia, Recurrent Gastrointestinal History: Reports: Cholelithiasis, GERD, Other (See Below) Other Gastrointestinal History: Has diarrhea all the time. 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 Endocrine/Metabolic History: Reports: Obesity/BMI 30+ Hematologic History: Reports: None Immunologic History: Reports: None Oncologic (Cancer) History: Reports: None Dermatologic History: Reports: None - Infectious Disease History Infectious Disease History: Reports: Chicken Pox - Past Surgical History Head Surgeries/Procedures: Reports: None HEENT Surgical History: Reports: Tonsillectomy GI Surgical History: Reports: Cholecystectomy, Colonoscopy Female Surgical History: Reports: Section Other Musculoskeletal Surgeries/Procedures:: Rt. fx. arm Social & Family History - Family History Family Medical History: Noncontributory Cardiac: Reports: CAD, Heart Failure, High Cholesterol, Hypertension, [place] Other Cardiac Family History: Dad GI: Reports: Cholelithiasis Psychiatric: Reports: Depression, Suicide Attempt, Other (See Below) Other Psychiatric Family History: entire family Endocrine/Metabolic: Reports: Diabetes, type II, Obesity/MBI 30+ Other Endocrine/Metabolic Family History: Dad and sister. Oncologic: Reports: Breast Other Oncologic Family History: aunt breast , dad stomach ca - Tobacco Use Smoking Status *Q: Current Every Day Smoker Years of Tobacco use: 40 Packs/Tins Daily: 1 - Caffeine Use Caffeine Use: Reports: None - Recreational Drug Use Recreational Drug Use: Yes Recreational Drug Type: Reports: Methamphetamine Recreational Drug Use Frequency: Weekly - Living Situation & Occupation Living situation: Reports: Other (with friends) Occupation: Unemployed ED ROS ENT - Review of Systems Review Of Systems: Comprehensive ROS is negative, except as noted in HPI. ED EXAM, ENT - Physical Exam Exam: See Below Exam Limited By: No Limitations General Appearance: Alert, No Apparent Distress Ears: Normal External Exam, Normal Canal, Hearing Grossly Normal, TM Erythema, TM Fluid (right) Nose: Normal Inspection Mouth/Throat: Normal Inspection Head: Atraumatic, Normocephalic Neck: Lymphadenopathy (L) (anterior posterior) Respiratory/Chest: No Respiratory Distress, Lungs Clear, Normal Breath Sounds Cardiovascular: Normal Peripheral Pulses, Regular Rate, Rhythm Extremities: Normal Inspection Neurological: Alert, Oriented Psychiatric: Normal Affect Skin: Warm, Dry Course - Vital Signs Last Recorded V/S: Last Vital Signs Temp 97.7 F 12/02/19 21:40 Pulse 86 12/02/19 21:40 Resp 16 12/02/19 21:40 BP 125/62 12/02/19 21:40 Pulse Ox 97 12/02/19 21:40 Departure - Departure Time of Disposition: 22:30 Disposition: Home, Self-Care 01 Condition: Good Clinical Impression: Methamphetamine abuse Otitis media Qualifiers: Otitis media type: serous Chronicity: acute Laterality: bilateral Recurrence: non-recurrent Qualified Code(s): H65.03 - Acute serous otitis media, bilateral - Discharge Information *PRESCRIPTION DRUG MONITORING PROGRAM REVIEWED*: No *COPY OF PRESCRIPTION DRUG MONITORING REPORT IN PATIENT FELIPE: No Instructions: Otitis Media, Adult, [id number] Referrals: PCP,Unobtain [Ordering Only Provider] - Forms: ED Department Discharge Additional Instructions: azithromycin 250mg two on day one then one tablet daily x 4 days clinic follow up this week as scheduled alternate tylenol 650mg and ibuprofen 600mg every 4 hours as needed Sepsis Event Note (ED) - Evaluation Sepsis Screening Result: No Definite Risk - Focused Exam Vital Signs: Vital Signs Temp Pulse Resp BP Pulse Ox 12/02/19 21:40 97.7 F 86 16 125/62 97
== END 2019-12-02 22:30 | disposition home or self-care (01) ==
LOC: DL.ED 21:04
DX: H65.03 Acute serous otitis media, bilateral (principal); F15.10 Other stimulant abuse, uncomplicated; I11.0 Hypertensive heart disease with heart failure; I50.9 Heart failure, unspecified; J44.9 Chronic obstructive pulmonary disease, unspecified; K21.9 Gastro-esophageal reflux disease without esophagitis; F41.9 Anxiety disorder, unspecified; F32.9 Major depressive disorder, single episode, unspecified; F17.210 Nicotine dependence, cigarettes, uncomplicated; E66.9 Obesity, unspecified; Z68.36 Body mass index [BMI] 36.0-36.9, adult; Z88.6 Allergy status to analgesic agent; Z88.5 Allergy status to narcotic agent; Z88.0 Allergy status to penicillin
CPT/HCPCS: 99282; 99283

== ENCOUNTER 2020-04-30 20:15 | Emergency (ER) | payer MEDICAID ==
[2020-04-30 20:23] VITALS: BP 145/68; PULSE 82
[2020-04-30 21:26] LABS: ANION GAP 14.3 mEq/L (7-13); CHLORIDE,CL 104 mmol/L (98-107); SODIUM,NA 139 mmol/L (136-145)
--- NOTE | 2020-04-30 21:28 | EDM.PDOC ---
ED HPI GENERAL MEDICAL PROBLEM - General Chief Complaint: Drug or Alcohol Abuse Stated Complaint: ABNORMAL HEARTBEAT Time Seen by Provider: 04/30/20 20:20 Source of Information: Reports: Patient History Limitations: Reports: No Limitations - History of Present Illness INITIAL COMMENTS - FREE TEXT/NARRATIVE: ED with c/o feeling like heart punding at times then slows down. Reportss on day 3 without meth. States had been using every day all day. poor diet, drinking lots of soda. No chest pain or breathing difficulty. No recent IVDU. Usual method, snorting, smoking and spooning. No nausea or vomiting. recent heavy 2 week period now slowed to light spotting. no current medication. Has not seen PCP in long time. - Related Data Allergies Allergy/AdvReac Type Severity Reaction Status Date / Time aspirin Allergy Swelling Verified 12/02/19 21:51 Penicillins Allergy Swelling Verified 12/02/19 21:51 tramadol Allergy Cannot Verified 12/02/19 21:51 Remember Home Meds: Home Meds Paliperidone [Invega] 12 mg SQ ASDIRECTED 12/17/13 [History] Benztropine Mesylate 1 mg PO TID 03/21/15 [History] DULoxetine [Cymbalta] 120 mg PO DAILY 03/21/15 [History] Pantoprazole [Protonix] 40 mg PO ACBREAKFAST 03/21/15 [History] tiZANidine [Zanaflex] 8 mg PO QID 03/21/15 [History] busPIRone HCl [busPIRone] 30 mg PO BID 05/22/16 [History] Past Medical History - Past Health History Medical/Surgical History: Denies Medical/Surgical History Cardiovascular History: Reports: Heart Failure, Hypertension Respiratory History: Reports: Asthma, Bronchitis, Recurrent, COPD, Intubation, Previous, Pneumonia, Recurrent Gastrointestinal History: Reports: Cholelithiasis, GERD, Other (See Below) Other Gastrointestinal History: Has diarrhea all the time. Genitourinary History: Reports: Urinary Incontinence [employer] History: Reports: Musculoskeletal History: Reports: Back Pain, Chronic, Osteoarthritis, Other (See Below) Other Musculoskeletal History: knee pain Neurological History: Reports: Migraines, Seizure Psychiatric History: Reports: Addiction, Anxiety, Depression, Eating Disorders, PTSD, Schizophrenia, Suicide Attempt, Suicidal Ideation Other Psychiatric History: multi personality disorder. Endocrine/Metabolic History: Reports: Obesity/BMI 30+ Hematologic History: Reports: None Immunologic History: Reports: None Oncologic (Cancer) History: Reports: None Dermatologic History: Reports: None - Infectious Disease History Infectious Disease History: Reports: Chicken Pox - Past Surgical History Head Surgeries/Procedures: Reports: None HEENT Surgical History: Reports: Tonsillectomy GI Surgical History: Reports: Cholecystectomy, Colonoscopy Female Surgical History: Reports: Section Other Musculoskeletal Surgeries/Procedures:: Rt. fx. arm Social & Family History - Family History Family Medical History: No Pertinent Family History Cardiac: Reports: CAD, Heart Failure, High Cholesterol, Hypertension, [place] Other Cardiac Family History: Dad GI: Reports: Cholelithiasis Psychiatric: Reports: Depression, Suicide Attempt, Other (See Below) Other Psychiatric Family History: entire family Endocrine/Metabolic: Reports: Diabetes, type II, Obesity/MBI 30+ Other Endocrine/Metabolic Family History: Dad and sister. Oncologic: Reports: Breast Other Oncologic Family History: aunt breast , dad stomach ca - Tobacco Use Tobacco Use Status *Q: Current Every Day Tobacco User Years of Tobacco use: 41 Packs/Tins Daily: 0.5 Second Hand Smoke Exposure: Yes - Caffeine Use Caffeine Use: Reports: None - Recreational Drug Use Recreational Drug Use: Yes Drug Use in Last 12 Months: Yes Recreational Drug Type: Reports: Methamphetamine Recreational Drug Use Frequency: Daily - Living Situation & Occupation Living situation: Reports: Other (with friends) Occupation: Unemployed ED ROS GENERAL - Review of Systems Review Of Systems: Comprehensive ROS is negative, except as noted in HPI. ED EXAM, GENERAL - Physical Exam Exam: See Below Exam Limited By: No Limitations General Appearance: Alert, Anxious Eye Exam: Bilateral Eye: EOMI Ears: Normal External Exam, Hearing Grossly Normal Nose: Normal Inspection Head: Atraumatic, Normocephalic Neck: Normal Inspection Respiratory/Chest: No Respiratory Distress, Lungs Clear, Normal Breath Sounds Cardiovascular: Normal Peripheral Pulses, Regular Rate, Rhythm. No: No Edema (trace) GI/Abdominal: Normal Bowel Sounds, Soft Back Exam: Normal Inspection Extremities: Normal Inspection, Normal Range of Motion Neurological: Alert, Oriented, Normal Cognition Psychiatric: Anxious Skin Exam: Warm, Dry, Intact, Normal Color Course - Vital Signs Last Recorded V/S: Last Vital Signs Temp 97.8 F 04/30/20 20:18 Pulse 82 04/30/20 20:18 Resp 18 04/30/20 20:18 BP 145/68 H 04/30/20 20:18 Pulse Ox 100 04/30/20 20:18 - Orders/Labs/Meds Labs: Laboratory Tests 04/30/20 04/30/20 04/30/20 Range/Units 20:40 20:40 20:40 WBC 6.8 (5.0-10.0) 10^3/uL RBC 4.36 (4.2-5.4) 10^6/uL Hgb 13.1 (12.0-16.0) g/dL Hct 38.1 (37.0-47.0) % MCV 87.4 (80-100) fL MCH 30.0 (27.0-34.0) pg MCHC 34.4 (33.0-35.0) g/dL Plt Count 166 (150-450) 10^3/uL Neut % (Auto) 61.9 (42.2-75.2) % Lymph % (Auto) 27.6 (20.5-50.1) % [place] % (Auto) 7.5 (2-8) % Eos % (Auto) 2.7 (1.0-3.0) % Baso % (Auto) 0.3 (0.0-1.0) % D-Dimer, Quantitative < 100 (0-400) ng/mL Sodium 139 (136-145) mmol/L Potassium 4.3 (3.5-5.1) mmol/L Chloride 104 (98-107) mmol/L Carbon Dioxide 25 (21-32) mmol/L Anion Gap 14.3 H (7-13) mEq/L BUN 13 (7-18) mg/dL Creatinine 0.72 (0.55-1.02) mg/dL Est Cr Clr Drug Dosing 85.05 mL/min Estimated GFR (MDRD) > 60 BUN/Creatinine Ratio 18.1 (No establ ref range) Glucose 87 (74-99) mg/dL Calcium 8.6 (8.5-10.1) mg/dL Total Bilirubin 0.3 (0.2-1.0) mg/dL AST 37 (15-37) U/L ALT 55 (14-59) U/L Alkaline Phosphatase 88 (46-116) U/L Troponin I < 0.017 (0.000-0.056) ng/mL Total Protein 6.2 L (6.4-8.2) g/dL Albumin 3.1 L (3.4-5.0) g/dL Globulin 3.1 Albumin/Globulin Ratio 1.00 TSH, Ultra Sensitive 2.87 (0.36-3.74) uIU/mL Urine Color (YELLOW) Urine Appearance (CLEAR) Urine pH (5.0-9.0) Ur Specific [place] (1.005-1.030) Urine Protein (NEGATIVE) Urine Glucose (UA) (NEGATIVE) Urine Ketones (NEGATIVE) Urine Occult Blood (NEGATIVE) Urine Nitrite (NEGATIVE) Urine Bilirubin (NEGATIVE) Urine Urobilinogen (0.2-1.0) mg/dL Ur Leukocyte Esterase (NEGATIVE) Urine RBC /HPF Urine WBC (0-5/HPF) /HPF Ur Epithelial Cells (NOT SEEN) /HPF Urine Bacteria (0-FEW/HPF) /HPF Urine Opiates Screen (NEGATIVE) Ur Oxycodone Screen (NEGATIVE) Urine Methadone Screen (NEGATIVE) Ur Barbiturates Screen (NEGATIVE) U Tricyclic Antidepress (NEGATIVE) Ur Phencyclidine Scrn (NEGATIVE) Ur Amphetamine Screen (NEGATIVE) U Methamphetamines Scrn (NEGATIVE) Urine MDMA Screen (NEGATIVE) U Benzodiazepines Scrn (NEGATIVE) Urine Cocaine Screen (NEGATIVE) U Marijuana (THC) Screen (NEGATIVE) 04/30/20 04/30/20 Range/Units 20:46 20:46 WBC (5.0-10.0) 10^3/uL RBC (4.2-5.4) 10^6/uL Hgb (12.0-16.0) g/dL Hct (37.0-47.0) % MCV (80-100) fL MCH (27.0-34.0) pg MCHC (33.0-35.0) g/dL Plt Count (150-450) 10^3/uL Neut % (Auto) (42.2-75.2) % Lymph % (Auto) (20.5-50.1) % [place] % (Auto) (2-8) % Eos % (Auto) (1.0-3.0) % Baso % (Auto) (0.0-1.0) % D-Dimer, Quantitative (0-400) ng/mL Sodium (136-145) mmol/L Potassium (3.5-5.1) mmol/L Chloride (98-107) mmol/L Carbon Dioxide (21-32) mmol/L Anion Gap (7-13) mEq/L BUN (7-18) mg/dL Creatinine (0.55-1.02) mg/dL Est Cr Clr Drug Dosing mL/min Estimated GFR (MDRD) BUN/Creatinine Ratio (No establ ref range) Glucose (74-99) mg/dL Calcium (8.5-10.1) mg/dL Total Bilirubin (0.2-1.0) mg/dL AST (15-37) U/L ALT (14-59) U/L Alkaline Phosphatase (46-116) U/L Troponin I (0.000-0.056) ng/mL Total Protein (6.4-8.2) g/dL Albumin (3.4-5.0) g/dL Globulin Albumin/Globulin Ratio TSH, Ultra Sensitive (0.36-3.74) uIU/mL Urine Color Yellow (YELLOW) Urine Appearance Slightly cloudy (CLEAR) Urine pH 5.5 (5.0-9.0) Ur Specific [place] 1.020 (1.005-1.030) Urine Protein Negative (NEGATIVE) Urine Glucose (UA) Negative (NEGATIVE) Urine Ketones Negative (NEGATIVE) Urine Occult Blood Small H (NEGATIVE) Urine Nitrite Negative (NEGATIVE) Urine Bilirubin Negative (NEGATIVE) Urine Urobilinogen 0.2 (0.2-1.0) mg/dL Ur Leukocyte Esterase Negative (NEGATIVE) Urine RBC 0-5 /HPF Urine WBC 5-10 H (0-5/HPF) /HPF Ur Epithelial Cells Many H (NOT SEEN) /HPF Urine Bacteria Many H (0-FEW/HPF) /HPF Urine Opiates Screen Negative (NEGATIVE) Ur Oxycodone Screen Negative (NEGATIVE) Urine Methadone Screen Negative (NEGATIVE) Ur Barbiturates Screen Negative (NEGATIVE) U Tricyclic Antidepress Negative (NEGATIVE) Ur Phencyclidine Scrn Negative (NEGATIVE) Ur Amphetamine Screen Positive H (NEGATIVE) U Methamphetamines Scrn Positive H (NEGATIVE) Urine MDMA Screen Negative (NEGATIVE) U Benzodiazepines Scrn Negative (NEGATIVE) Urine Cocaine Screen Negative (NEGATIVE) U Marijuana (THC) Screen Negative (NEGATIVE) Departure - Departure Time of Disposition: 21:48 Disposition: Home, Self-Care 01 Condition: Good Clinical Impression: Methamphetamine abuse, Palpitations, Anxiety about health - Discharge Information *PRESCRIPTION DRUG MONITORING PROGRAM REVIEWED*: No *COPY OF PRESCRIPTION DRUG MONITORING REPORT IN PATIENT FELIPE: No Instructions: Methamphetamines Use Disorder Forms: ED Department Discharge Additional Instructions: [facility] Utilize support systems Healthy diet more water, less soda limit caffeine follow up in clinic next week Sepsis Event Note (ED) - Evaluation Sepsis Screening Result: No Definite Risk - Focused Exam Vital Signs: Vital Signs Temp Pulse Resp BP Pulse Ox 04/30/20 20:18 97.8 F 82 18 145/68 H 100
[2020-04-30 21:42] LABS: AMPHETAMINES,URINE POSITIVE (NEGATIVE); BARBITURATES,URINE NEGATIVE (NEGATIVE); BENZODIAZEPINE,URINE NEGATIVE (NEGATIVE); MDMA (ECSTASY), URINE NEGATIVE (NEGATIVE); METHADONE,URINE NEGATIVE (NEGATIVE); METHAMPHETAMINES,URINE POSITIVE (NEGATIVE); OPIATES,URINE NEGATIVE (NEGATIVE); OXYCODONE,URINE NEGATIVE (NEGATIVE); PHENCYCLIDINE,URINE NEGATIVE (NEGATIVE); TCA,URINE NEGATIVE (NEGATIVE)
== END 2020-04-30 21:55 | disposition home or self-care (01) ==
LOC: DL.ED 20:15
DX: F41.9 Anxiety disorder, unspecified (principal); F15.10 Other stimulant abuse, uncomplicated; I11.0 Hypertensive heart disease with heart failure; I50.9 Heart failure, unspecified; J44.9 Chronic obstructive pulmonary disease, unspecified; K21.9 Gastro-esophageal reflux disease without esophagitis; E66.9 Obesity, unspecified; Z68.41 Body mass index [BMI] 40.0-44.9, adult; Z88.6 Allergy status to analgesic agent; Z88.5 Allergy status to narcotic agent; Z88.0 Allergy status to penicillin; Z79.899 Other long term (current) drug therapy; Z72.0 Tobacco use
CPT/HCPCS: 36415; 80053; 80305-QW; 81001; 84443; 84484; 85025; 85379; 93005; 99283; 99285-25

== ENCOUNTER 2020-05-15 18:37 | Emergency (ER) | payer MEDICAID ==
[2020-05-15] MEDS ORDERED: Sodium Chloride 0.9% 1,000 ML IV ONE ×4 (19:02→20:27)
[2020-05-15 19:03] VITALS: BP 88/36; PULSE 69
--- NOTE | 2020-05-15 19:19 | EDM.PDOC ---
ED HPI GENERAL MEDICAL PROBLEM - General Chief Complaint: Behavioral/Psych Stated Complaint: AMBULANCE Time Seen by Provider: 05/15/20 18:55 Source of Information: Reports: EMS, RN History Limitations: Reports: Altered Mental Status - History of Present Illness INITIAL COMMENTS - FREE TEXT/NARRATIVE: ED via [facility] with report of overdose approximately 1800 25 - 800mg seroquel tab lets and ETOH, Initially stated just wanted to sleep, later admitting wanting to harm self. Prior hx of multiple drug overdoses in past hx. EMS unable to locate pill bottles for dosae and quantity estimate. Patient drowsy on arrival. - Related Data Allergies Allergy/AdvReac Type Severity Reaction Status Date / Time aspirin Allergy Swelling Verified 05/15/20 19:03 Penicillins Allergy Swelling Verified 05/15/20 19:03 tramadol Allergy Cannot Verified 05/15/20 19:03 Remember Home Meds: Home Meds Paliperidone [Invega] 12 mg SQ ASDIRECTED 12/17/13 [History] Benztropine Mesylate 1 mg PO TID 03/21/15 [History] DULoxetine [Cymbalta] 120 mg PO DAILY 03/21/15 [History] Pantoprazole [Protonix] 40 mg PO ACBREAKFAST 03/21/15 [History] tiZANidine [Zanaflex] 8 mg PO QID 03/21/15 [History] busPIRone HCl [busPIRone] 30 mg PO BID 05/22/16 [History] Past Medical History - Past Health History Medical/Surgical History: Denies Medical/Surgical History Cardiovascular History: Reports: Heart Failure, Hypertension Respiratory History: Reports: Asthma, Bronchitis, Recurrent, COPD, Intubation, Previous, Pneumonia, Recurrent Gastrointestinal History: Reports: Cholelithiasis, GERD, Other (See Below) Other Gastrointestinal History: Has diarrhea all the time. 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 Endocrine/Metabolic History: Reports: Obesity/BMI 30+ Hematologic History: Reports: None Immunologic History: Reports: None Oncologic (Cancer) History: Reports: None Dermatologic History: Reports: None - Infectious Disease History Infectious Disease History: Reports: Chicken Pox - Past Surgical History Head Surgeries/Procedures: Reports: None HEENT Surgical History: Reports: Tonsillectomy GI Surgical History: Reports: Cholecystectomy, Colonoscopy Female Surgical History: Reports: Section Other Musculoskeletal Surgeries/Procedures:: Rt. fx. arm Social & Family History - Family History Family Medical History: No Pertinent Family History Cardiac: Reports: CAD, Heart Failure, High Cholesterol, Hypertension, [place] Other Cardiac Family History: Dad GI: Reports: Cholelithiasis Psychiatric: Reports: Depression, Suicide Attempt, Other (See Below) Other Psychiatric Family History: entire family Endocrine/Metabolic: Reports: Diabetes, type II, Obesity/MBI 30+ Other Endocrine/Metabolic Family History: Dad and sister. Oncologic: Reports: Breast Other Oncologic Family History: aunt breast , dad stomach ca - Tobacco Use Tobacco Use Status *Q: Unknown Ever Used Tobacco - Caffeine Use Caffeine Use: Reports: None - Living Situation & Occupation Living situation: Reports: Other (with friends) Occupation: Unemployed ED ROS GENERAL - Review of Systems Review Of Systems: Comprehensive ROS is negative, except as noted in HPI. - Physical Exam Exam: See Below Exam Limited By: No Limitations General Appearance: Lethargic Ears: Normal External Exam Nose: Normal Mucosa Throat/Mouth: Other (speech slurred). No: Normal Voice (soft) Head Exam: Atraumatic, Normocephalic Neck: Normal Inspection Respiratory/Chest: No Respiratory Distress, Lungs Clear, Normal Breath Sounds Cardiovascular: Normal Peripheral Pulses, Regular Rate, Rhythm GI/Abdominal: Normal Bowel Sounds, Soft Neuro Exam (Abbreviated): Slow to Respond, Other (GCS 14) Psychiatric: Flat Affect Skin Exam: Warm, Dry, Tattoo(s), Other (superficial scratxhes left hand wrist, ) Course - Vital Signs Last Recorded V/S: Last Vital Signs Temp 98.4 F 05/15/20 19:00 Pulse 69 05/15/20 19:00 Resp 22 H 05/15/20 19:00 BP 88/36 L 05/15/20 19:00 Pulse Ox 95 05/15/20 19:00 - Orders/Labs/Meds Orders: Active Orders 24 hr Category Date Time Status Blood Glucose Check, Bedside [RC] ONETIME Care 05/15/20 19:07 Active EKG Documentation Completion [RC] STAT Care 05/15/20 19:02 Active Insert Jaquez Catheter [Insert Urinary Catheter] [OM.PC] Care 05/15/20 19:15 Ordered Q24H Urinary Catheter Assessment [RC] ASDIRECTED Care 05/15/20 19:11 Active Labs: Laboratory Tests 05/15/20 05/15/20 05/15/20 Range/Units 18:55 18:55 18:55 WBC 6.5 (5.0-10.0) 10^3/uL RBC 4.63 (4.2-5.4) 10^6/uL Hgb 14.2 (12.0-16.0) g/dL Hct 40.4 (37.0-47.0) % MCV 87.3 (80-100) fL MCH 30.7 (27.0-34.0) pg MCHC 35.1 H (33.0-35.0) g/dL Plt Count 129 L (150-450) 10^3/uL Neut % (Auto) 60.0 (42.2-75.2) % Lymph % (Auto) 28.5 (20.5-50.1) % [place] % (Auto) 9.3 H (2-8) % Eos % (Auto) 1.9 (1.0-3.0) % Baso % (Auto) 0.3 (0.0-1.0) % Sodium 145 (136-145) mmol/L Potassium 4.4 (3.5-5.1) mmol/L Chloride 107 (98-107) mmol/L Carbon Dioxide 27 (21-32) mmol/L Anion Gap 15.4 H (7-13) mEq/L BUN 11 (7-18) mg/dL Creatinine 0.78 (0.55-1.02) mg/dL Est Cr Clr Drug Dosing TNP Estimated GFR (MDRD) > 60 BUN/Creatinine Ratio 14.1 (No establ ref range) Glucose 86 (74-99) mg/dL POC Glucose (70-105) mg/dl Calcium 9.1 (8.5-10.1) mg/dL Magnesium 1.8 (1.8-2.4) mg/dL Total Bilirubin 0.4 (0.2-1.0) mg/dL AST 49 H (15-37) U/L ALT 54 (14-59) U/L Alkaline Phosphatase 80 (46-116) U/L Total Protein 6.8 (6.4-8.2) g/dL Albumin 3.6 (3.4-5.0) g/dL Globulin 3.2 Albumin/Globulin Ratio 1.1 Urine Color (YELLOW) Urine Appearance (CLEAR) Urine pH (5.0-9.0) Ur Specific [place] (1.005-1.030) Urine Protein (NEGATIVE) Urine Glucose (UA) (NEGATIVE) Urine Ketones (NEGATIVE) Urine Occult Blood (NEGATIVE) Urine Nitrite (NEGATIVE) Urine Bilirubin (NEGATIVE) Urine Urobilinogen (0.2-1.0) mg/dL Ur Leukocyte Esterase (NEGATIVE) Salicylates 3.9 (2.8-20(Therapeutic)) mg/dL Urine Opiates Screen (NEGATIVE) Ur Oxycodone Screen (NEGATIVE) Urine Methadone Screen (NEGATIVE) Acetaminophen 0 L (10-30 (Therapeutic)) ug/mL Ur Barbiturates Screen (NEGATIVE) U Tricyclic Antidepress (NEGATIVE) Ur Phencyclidine Scrn (NEGATIVE) Ur Amphetamine Screen (NEGATIVE) U Methamphetamines Scrn (NEGATIVE) Urine MDMA Screen (NEGATIVE) U Benzodiazepines Scrn (NEGATIVE) Urine Cocaine Screen (NEGATIVE) U Marijuana (THC) Screen (NEGATIVE) Ethyl Alcohol 34 (0) mg/dL SARS-CoV-2 RNA (VASU) (NEGATIVE) 05/15/20 05/15/20 05/15/20 Range/Units 19:07 19:10 19:10 WBC (5.0-10.0) 10^3/uL RBC (4.2-5.4) 10^6/uL Hgb (12.0-16.0) g/dL Hct (37.0-47.0) % MCV (80-100) fL MCH (27.0-34.0) pg MCHC (33.0-35.0) g/dL Plt Count (150-450) 10^3/uL Neut % (Auto) (42.2-75.2) % Lymph % (Auto) (20.5-50.1) % [place] % (Auto) (2-8) % Eos % (Auto) (1.0-3.0) % Baso % (Auto) (0.0-1.0) % Sodium (136-145) mmol/L Potassium (3.5-5.1) mmol/L Chloride (98-107) mmol/L Carbon Dioxide (21-32) mmol/L Anion Gap (7-13) mEq/L BUN (7-18) mg/dL Creatinine (0.55-1.02) mg/dL Est Cr Clr Drug Dosing Estimated GFR (MDRD) BUN/Creatinine Ratio (No establ ref range) Glucose (74-99) mg/dL POC Glucose 97 (70-105) mg/dl Calcium (8.5-10.1) mg/dL Magnesium (1.8-2.4) mg/dL Total Bilirubin (0.2-1.0) mg/dL AST (15-37) U/L ALT (14-59) U/L Alkaline Phosphatase (46-116) U/L Total Protein (6.4-8.2) g/dL Albumin (3.4-5.0) g/dL Globulin Albumin/Globulin Ratio Urine Color Yellow (YELLOW) Urine Appearance Clear (CLEAR) Urine pH 6.0 (5.0-9.0) Ur Specific [place] 1.010 (1.005-1.030) Urine Protein Negative (NEGATIVE) Urine Glucose (UA) Negative (NEGATIVE) Urine Ketones Negative (NEGATIVE) Urine Occult Blood Negative (NEGATIVE) Urine Nitrite Negative (NEGATIVE) Urine Bilirubin Negative (NEGATIVE) Urine Urobilinogen 0.2 (0.2-1.0) mg/dL Ur Leukocyte Esterase Negative (NEGATIVE) Salicylates (2.8-20(Therapeutic)) mg/dL Urine Opiates Screen Negative (NEGATIVE) Ur Oxycodone Screen Negative (NEGATIVE) Urine Methadone Screen Negative (NEGATIVE) Acetaminophen (10-30 (Therapeutic)) ug/mL Ur Barbiturates Screen Negative (NEGATIVE) U Tricyclic Antidepress Negative (NEGATIVE) Ur Phencyclidine Scrn Negative (NEGATIVE) Ur Amphetamine Screen Positive H (NEGATIVE) U Methamphetamines Scrn Positive H (NEGATIVE) Urine MDMA Screen Negative (NEGATIVE) U Benzodiazepines Scrn Negative (NEGATIVE) Urine Cocaine Screen Negative (NEGATIVE) U Marijuana (THC) Screen Negative (NEGATIVE) Ethyl Alcohol (0) mg/dL SARS-CoV-2 RNA (VASU) (NEGATIVE) 05/15/20 Range/Units 19:16 WBC (5.0-10.0) 10^3/uL RBC (4.2-5.4) 10^6/uL Hgb (12.0-16.0) g/dL Hct (37.0-47.0) % MCV (80-100) fL MCH (27.0-34.0) pg MCHC (33.0-35.0) g/dL Plt Count (150-450) 10^3/uL Neut % (Auto) (42.2-75.2) % Lymph % (Auto) (20.5-50.1) % [place] % (Auto) (2-8) % Eos % (Auto) (1.0-3.0) % Baso % (Auto) (0.0-1.0) % Sodium (136-145) mmol/L Potassium (3.5-5.1) mmol/L Chloride (98-107) mmol/L Carbon Dioxide (21-32) mmol/L Anion Gap (7-13) mEq/L BUN (7-18) mg/dL Creatinine (0.55-1.02) mg/dL Est Cr Clr Drug Dosing Estimated GFR (MDRD) BUN/Creatinine Ratio (No establ ref range) Glucose (74-99) mg/dL POC Glucose (70-105) mg/dl Calcium (8.5-10.1) mg/dL Magnesium (1.8-2.4) mg/dL Total Bilirubin (0.2-1.0) mg/dL AST (15-37) U/L ALT (14-59) U/L Alkaline Phosphatase (46-116) U/L Total Protein (6.4-8.2) g/dL Albumin (3.4-5.0) g/dL Globulin Albumin/Globulin Ratio Urine Color (YELLOW) Urine Appearance (CLEAR) Urine pH (5.0-9.0) Ur Specific [place] (1.005-1.030) Urine Protein (NEGATIVE) Urine Glucose (UA) (NEGATIVE) Urine Ketones (NEGATIVE) Urine Occult Blood (NEGATIVE) Urine Nitrite (NEGATIVE) Urine Bilirubin (NEGATIVE) Urine Urobilinogen (0.2-1.0) mg/dL Ur Leukocyte Esterase (NEGATIVE) Salicylates (2.8-20(Therapeutic)) mg/dL Urine Opiates Screen (NEGATIVE) Ur Oxycodone Screen (NEGATIVE) Urine Methadone Screen (NEGATIVE) Acetaminophen (10-30 (Therapeutic)) ug/mL Ur Barbiturates Screen (NEGATIVE) U Tricyclic Antidepress (NEGATIVE) Ur Phencyclidine Scrn (NEGATIVE) Ur Amphetamine Screen (NEGATIVE) U Methamphetamines Scrn (NEGATIVE) Urine MDMA Screen (NEGATIVE) U Benzodiazepines Scrn (NEGATIVE) Urine Cocaine Screen (NEGATIVE) U Marijuana (THC) Screen (NEGATIVE) Ethyl Alcohol (0) mg/dL SARS-CoV-2 RNA (VASU) Negative (NEGATIVE) Meds: Medications Discontinued Medications Generic Name Dose Route Start Last Admin Trade Name Freq PRN Reason Stop Dose Admin Sodium Chloride 1,000 mls @ 999 mls/hr 05/15/20 19:02 05/15/20 19:05 Normal Saline IV 05/15/20 20:02 999 mls/hr .BOLUS ONE Administration Sodium Chloride 1,000 mls @ 999 mls/hr 05/15/20 19:03 05/15/20 19:05 Normal Saline IV 05/15/20 20:03 999 mls/hr .BOLUS ONE Administration - Re-Assessments/Exams Free Text/Narrative Re-Assessment/Exam: 05/15/20 19:[address] Alcira Sanchez, accepting patient . Tx via [facility]. Departure - Departure Time of Disposition: 20:22 Disposition: DC/Tfer to Acute Hospital 02 Condition: Fair Clinical Impression: Prescription drug abuse, Morbid obesity, Drug overdose, intentional, Positive urine drug screen - Discharge Information Forms: ED Department Discharge Sepsis Event Note (ED) - Evaluation Sepsis Screening Result: No Definite Risk - Focused Exam Vital Signs: Vital Signs Temp Pulse Resp BP Pulse Ox 05/15/20 19:00 98.4 F 69 22 H 88/36 L 95 - My Orders Last 24 Hours: My Active Orders 05/15/20 19:02 EKG Documentation Completion [RC] STAT 05/15/20 19:07 Blood Glucose Check, Bedside [RC] ONETIME 05/15/20 19:11 Urinary Catheter Assessment [RC] ASDIRECTED 05/15/20 19:15 Insert Jaquez Catheter [Insert Urinary Catheter] [OM.PC] Q24H - Assessment/Plan Last 24 Hours: My Active Orders 05/15/20 19:02 EKG Documentation Completion [RC] STAT 05/15/20 19:07 Blood Glucose Check, Bedside [RC] ONETIME 05/15/20 19:11 Urinary Catheter Assessment [RC] ASDIRECTED 05/15/20 19:15 Insert Jaquez Catheter [Insert Urinary Catheter] [OM.PC] Q24H
[2020-05-15 19:22] LABS: CHLORIDE,CL 107 mmol/L (98-107); SODIUM,NA 145 mmol/L (136-145)
[2020-05-15 19:29] LABS: ACETAMINOPHEN 0 ug/mL (10-30 (Therapeutic)); ANION GAP 15.4 mEq/L (7-13)
== END 2020-05-15 20:34 ==
LOC: DL.ED 18:37
DX: T43.592A Poisoning by other antipsychotics and neuroleptics, intentional self-harm, initial encounter (principal); E66.01 Morbid (severe) obesity due to excess calories; R82.5 Elevated urine levels of drugs, medicaments and biological substances; J44.9 Chronic obstructive pulmonary disease, unspecified; I11.0 Hypertensive heart disease with heart failure; I50.9 Heart failure, unspecified; K21.9 Gastro-esophageal reflux disease without esophagitis; E66.9 Obesity, unspecified; Z88.6 Allergy status to analgesic agent; Z88.0 Allergy status to penicillin; Z88.5 Allergy status to narcotic agent; Z79.899 Other long term (current) drug therapy; Z20.822 Contact with and (suspected) exposure to COVID-19
CPT/HCPCS: 36415; 51702; 80053; 80143; 80179; 80305; 80307; 81003; 82962; 83735; 85025; 87635; 93005; 99284; 99285; J7030; U0002

== ENCOUNTER 2020-09-27 17:31 | Emergency (ER) | payer MEDICAID ==
[2020-09-27 18:20] VITALS: BP 140/91; PULSE 80
--- NOTE | 2020-09-27 19:06 | EDM.PDOC ---
<Courtney Coleman - Last Filed: 09/28/20 05:42> ED HPI GENERAL MEDICAL PROBLEM - General Chief Complaint: Abdominal Pain Stated Complaint: PAIN IN ABDOMEN Time Seen by Provider: 09/27/20 18:45 - Related Data Allergies Allergy/AdvReac Type Severity Reaction Status Date / Time aspirin Allergy Swelling Verified 09/27/20 18:16 Penicillins Allergy Swelling Verified 09/27/20 18:16 tramadol Allergy Cannot Verified 09/27/20 18:16 Remember Home Meds: Home Meds Paliperidone [Invega] 12 mg SQ ASDIRECTED 12/17/13 [History] Benztropine Mesylate 1 mg PO BID 03/21/15 [History] DULoxetine [Cymbalta] 60 mg PO DAILY 03/21/15 [History] Pantoprazole [Protonix] 40 mg PO ACBREAKFAST 03/21/15 [History] Albuterol Sulfate [Proair Hfa] 2 puff INH Q6H 07/30/20 [History] Albuterol [Proventil Neb Soln] 3 ml INH ASDIRECTED 07/30/20 [History] Course - Re-Assessments/Exams Free Text/Narrative Re-Assessment/Exam: 2124 Signed out AMA did not want to wait to have results of lab studies. Delay in ED due to multiple critical patients Departure - Departure Time of Disposition: 21:28 Disposition: Against Medical Advice 07 Condition: Undetermined Clinical Impression: Methamphetamine abuse Abdominal pain Qualifiers: Abdominal location: left upper quadrant Qualified Code(s): R10.12 - Left upper quadrant pain - Discharge Information *PRESCRIPTION DRUG MONITORING PROGRAM REVIEWED*: No *COPY OF PRESCRIPTION DRUG MONITORING REPORT IN PATIENT FELIPE: No Referrals: Jorge Jamil, CONTRACT LOADER [Primary Care Provider] - Forms: ED Department Discharge <RománKim gutierres - Last Filed: 09/28/20 09:26> ED HPI GENERAL MEDICAL PROBLEM - General Source of Information: Reports: Patient, RN, RN Notes Reviewed History Limitations: Reports: No Limitations - History of Present Illness INITIAL COMMENTS - FREE TEXT/NARRATIVE: Kori is a 50 y/o female who presents to the ED via personal vehicle with complaints of LLQ pain. The patient reports her pain began approximately three days ago and has progressed in that time. She states the pain radiates up into her LUQ, an area which has chronic pain. Per her report, she will be undergoing a liver biopsy on 09/30/[address] Smith for LUQ pain. She has taken no medications for her symptoms, but does note she has been unable to perform her usual daily methamphetamines as she has felt so unwell. She denies fever, shaking chills, palpitations, vomiting, dysuria, hematuria, constipation, or diarrhea. She does attest to nausea, diaphoresis, and shortness of breath with deep breaths. Her last methamphetamine use was three days ago; she attests to daily cigarette use and denies alcohol use. Abdomen Pain Score (Numeric/FACES): 7 Past Medical History - Past Health History Medical/Surgical History: Denies Medical/Surgical History Cardiovascular History: Reports: Heart Failure, Hypertension Respiratory History: Reports: Asthma, Bronchitis, Recurrent, COPD, Intubation, Previous, Pneumonia, Recurrent Gastrointestinal History: Reports: Cholelithiasis, GERD, Other (See Below) Other Gastrointestinal History: Has diarrhea all the time. 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 Endocrine/Metabolic History: Reports: Obesity/BMI 30+ Hematologic History: Reports: None Immunologic History: Reports: None Oncologic (Cancer) History: Reports: None Dermatologic History: Reports: None - Infectious Disease History Infectious Disease History: Reports: Chicken Pox - Past Surgical History Head Surgeries/Procedures: Reports: None HEENT Surgical History: Reports: Tonsillectomy GI Surgical History: Reports: Cholecystectomy, Colonoscopy Female Surgical History: Reports: Section Other Musculoskeletal Surgeries/Procedures:: Rt. fx. arm Social & Family History - Family History Family Medical History: No Pertinent Family History Cardiac: Reports: CAD, Heart Failure, High Cholesterol, Hypertension, [place] Other Cardiac Family History: Dad GI: Reports: Cholelithiasis Psychiatric: Reports: Depression, Suicide Attempt, Other (See Below) Other Psychiatric Family History: entire family Endocrine/Metabolic: Reports: Diabetes, type II, Obesity/MBI 30+ Other Endocrine/Metabolic Family History: Dad and sister. Oncologic: Reports: Breast Other Oncologic Family History: aunt breast , dad stomach ca - Tobacco Use Tobacco Use Status *Q: Current Every Day Tobacco User Years of Tobacco use: 39 Packs/Tins Daily: 1 - Caffeine Use Caffeine Use: Reports: Coffee - Recreational Drug Use Recreational Drug Use: Yes Drug Use in Last 12 Months: Yes Recreational Drug Type: Reports: Methamphetamine Recreational Drug Use Frequency: Weekly Recreational Drug Last Use: 09/25/2020 - Living Situation & Occupation Living situation: Reports: Other (with friends) Occupation: Unemployed ED ROS GENERAL - Review of Systems Review Of Systems: Comprehensive ROS is negative, except as noted in HPI. ED EXAM, GI/ABD - Physical Exam Exam: See Below Exam Limited By: No Limitations General Appearance: Alert, No Apparent Distress Eyes: Bilateral: Normal Appearance, EOMI Ears: Normal External Exam, Hearing Grossly Normal Nose: Normal Inspection, Normal Mucosa, No Blood Throat/Mouth: Normal Inspection, Normal Oropharynx, Normal Voice, No Airway Compromise Head: Atraumatic, Normocephalic Neck: Normal Inspection, Supple, Non-Tender, Full Range of Motion Respiratory/Chest: No Respiratory Distress, No Accessory Muscle Use, Crackles (To bilateral lower lobes), Rhonchi (Diffuse to all lobes), Accessory Muscle Use. No: Wheezing, Stridor Cardiovascular: Normal Peripheral Pulses, Regular Rate, Rhythm, No Gallop, No JVD, No Murmur, No Rub. No: No Edema GI/Abdominal Exam: Normal Bowel Sounds, Soft, No Distention, No Abnormal Bruit, No Mass, Pelvis Stable, Tender (To LLQ and LUQ) (Female) Exam: Deferred Rectal (Female) Exam: Deferred Back Exam: Normal Inspection, Full Range of Motion, CVA Tenderness (R). No: CVA Tenderness (L) Extremities: Normal Inspection, Normal Range of Motion, Normal Capillary Refill, Pedal Edema (+1 pitting, bilaterally) Neurological: Alert, Oriented, CN II-XII Intact, Normal Cognition, Normal Gait, No Motor/Sensory Deficits Psychiatric: Normal Affect, Normal Mood Skin Exam: Warm, Intact, Normal Color, No Rash, Diaphoretic. No: Cyanosis, Ecchymosis, Erythema, Jaundice, Mottled, Pallor, Petechiae Course - Vital Signs Last Recorded V/S: Last Vital Signs Temp 97.9 F 09/27/20 18:19 Pulse 80 07/19/21 18:19 Resp 18 09/27/20 18:19 BP 140/91 H 09/27/20 18:19 Pulse Ox 99 09/27/20 18:19 - Orders/Labs/Meds Labs: Laboratory Tests 09/27/20 09/27/20 09/27/20 Range/Units 19:07 19:07 19:07 WBC 6.0 (5.0-10.0) 10^3/uL RBC 4.56 (4.2-5.4) 10^6/uL Hgb 13.6 (12.0-16.0) g/dL Hct 39.3 (37.0-47.0) % MCV 86.2 (80-100) fL MCH 29.8 (27.0-34.0) pg MCHC 34.6 (33.0-35.0) g/dL Plt Count 126 L (150-450) 10^3/uL Neut % (Auto) 57.8 (42.2-75.2) % Lymph % (Auto) 29.8 (20.5-50.1) % [place] % (Auto) 8.2 H (2-8) % Eos % (Auto) 3.7 H (1.0-3.0) % Baso % (Auto) 0.5 (0.0-1.0) % Sodium 141 (136-145) mmol/L Potassium 4.7 (3.5-5.1) mmol/L Chloride 105 (98-107) mmol/L Carbon Dioxide 26 (21-32) mmol/L Anion Gap 14.7 H (7-13) mEq/L BUN 9 (7-18) mg/dL Creatinine 0.67 (0.55-1.02) mg/dL Est Cr Clr Drug Dosing 90.39 mL/min Estimated GFR (MDRD) > 60 BUN/Creatinine Ratio 13.4 (No establ ref range) Glucose 91 (70-99) mg/dL Lactic Acid 0.7 (0.4-2.0) mmol/L Calcium 8.7 (8.5-10.1) mg/dL Magnesium 1.6 L (1.8-2.4) mg/dL Total Bilirubin 0.4 (0.2-1.0) mg/dL AST 85 H (15-37) U/L ALT 98 H (14-59) U/L Alkaline Phosphatase 113 (46-116) U/L C-Reactive Protein < 0.2 (0.0-0.9) mg/dL Total Protein 6.5 (6.4-8.2) g/dL Albumin 3.0 L (3.4-5.0) g/dL Globulin 3.5 Albumin/Globulin Ratio 0.86 Amylase 40 (25-115) U/L Lipase 177 (73-393) U/L Urine Color (YELLOW) Urine Appearance (CLEAR) Urine pH (5.0-9.0) Ur Specific [place] (1.005-1.030) Urine Protein (NEGATIVE) Urine Glucose (UA) (NEGATIVE) Urine Ketones (NEGATIVE) Urine Occult Blood (NEGATIVE) Urine Nitrite (NEGATIVE) Urine Bilirubin (NEGATIVE) Urine Urobilinogen (0.2-1.0) mg/dL Ur Leukocyte Esterase (NEGATIVE) Urine Opiates Screen (NEGATIVE) Ur Oxycodone Screen (NEGATIVE) Urine Methadone Screen (NEGATIVE) Ur Barbiturates Screen (NEGATIVE) U Tricyclic Antidepress (NEGATIVE) Ur Phencyclidine Scrn (NEGATIVE) Ur Amphetamine Screen (NEGATIVE) U Methamphetamines Scrn (NEGATIVE) Urine MDMA Screen (NEGATIVE) U Benzodiazepines Scrn (NEGATIVE) Urine Cocaine Screen (NEGATIVE) U Marijuana (THC) Screen (NEGATIVE) Ethyl Alcohol < 3 (0) mg/dL Influenza Type A RNA (NEGATIVE) Influenza Type B RNA (NEGATIVE) SARS-CoV-2 RNA (VASU) (NEGATIVE) 09/27/20 09/27/20 09/27/20 Range/Units 21:02 21:02 21:02 WBC (5.0-10.0) 10^3/uL RBC (4.2-5.4) 10^6/uL Hgb (12.0-16.0) g/dL Hct (37.0-47.0) % MCV (80-100) fL MCH (27.0-34.0) pg MCHC (33.0-35.0) g/dL Plt Count (150-450) 10^3/uL Neut % (Auto) (42.2-75.2) % Lymph % (Auto) (20.5-50.1) % [place] % (Auto) (2-8) % Eos % (Auto) (1.0-3.0) % Baso % (Auto) (0.0-1.0) % Sodium (136-145) mmol/L Potassium (3.5-5.1) mmol/L Chloride (98-107) mmol/L Carbon Dioxide (21-32) mmol/L Anion Gap (7-13) mEq/L BUN (7-18) mg/dL Creatinine (0.55-1.02) mg/dL Est Cr Clr Drug Dosing mL/min Estimated GFR (MDRD) BUN/Creatinine Ratio (No establ ref range) Glucose (70-99) mg/dL Lactic Acid (0.4-2.0) mmol/L Calcium (8.5-10.1) mg/dL Magnesium (1.8-2.4) mg/dL Total Bilirubin (0.2-1.0) mg/dL AST (15-37) U/L ALT (14-59) U/L Alkaline Phosphatase (46-116) U/L C-Reactive Protein (0.0-0.9) mg/dL Total Protein (6.4-8.2) g/dL Albumin (3.4-5.0) g/dL Globulin Albumin/Globulin Ratio Amylase (25-115) U/L Lipase (73-393) U/L Urine Color Yellow (YELLOW) Urine Appearance Clear (CLEAR) Urine pH 6.0 (5.0-9.0) Ur Specific [place] 1.020 (1.005-1.030) Urine Protein Negative (NEGATIVE) Urine Glucose (UA) Negative (NEGATIVE) Urine Ketones Negative (NEGATIVE) Urine Occult Blood Negative (NEGATIVE) Urine Nitrite Negative (NEGATIVE) Urine Bilirubin Negative (NEGATIVE) Urine Urobilinogen 0.2 (0.2-1.0) mg/dL Ur Leukocyte Esterase Negative (NEGATIVE) Urine Opiates Screen Negative (NEGATIVE) Ur Oxycodone Screen Negative (NEGATIVE) Urine Methadone Screen Negative (NEGATIVE) Ur Barbiturates Screen Negative (NEGATIVE) U Tricyclic Antidepress Negative (NEGATIVE) Ur Phencyclidine Scrn Negative (NEGATIVE) Ur Amphetamine Screen Positive H (NEGATIVE) U Methamphetamines Scrn Positive H (NEGATIVE) Urine MDMA Screen Negative (NEGATIVE) U Benzodiazepines Scrn Negative (NEGATIVE) Urine Cocaine Screen Negative (NEGATIVE) U Marijuana (THC) Screen Negative (NEGATIVE) Ethyl Alcohol (0) mg/dL Influenza Type A RNA Negative (NEGATIVE) Influenza Type B RNA Negative (NEGATIVE) SARS-CoV-2 RNA (VASU) Negative (NEGATIVE) Meds: Medications Discontinued Medications Generic Name Dose Route Start Last Admin Trade Name Tkq PRN Reason Stop Dose Admin Iopamidol 50 ml 09/27/20 21:14 09/27/20 22:01 Iopamidol 612 Mg/Ml 50 Ml Sdv IVPUSH 09/27/20 21:15 25 ml ONETIME ONE Administration Iopamidol 100 ml 09/27/20 21:15 09/27/20 22:01 Iopamidol 612 Mg/Ml 100 Ml Bottle IVPUSH 09/27/20 21:16 100 ml ONETIME ONE Administration Ondansetron HCl 4 mg 09/27/20 19:12 09/27/20 19:26 Ondansetron 4 Mg Tab.Dis PO 09/27/20 19:13 4 mg ONETIME ONE Administration - Re-Assessments/Exams Free Text/Narrative Re-Assessment/Exam: 09/27/20 Care of patient transferred to Courtney Coleman PA-C at 1900 Sepsis Event Note (ED) - Evaluation Sepsis Screening Result: No Definite Risk
[2020-09-27] MEDS ORDERED: Ondansetron 4 MG Tab.DIS PO ONE (19:12)
[2020-09-27 19:41] LABS: ANION GAP 14.7 mEq/L (7-13); CHLORIDE,CL 105 mmol/L (98-107); SODIUM,NA 141 mmol/L (136-145)
[2020-09-27 21:10] LABS: MDMA (ECSTASY), URINE NEGATIVE (NEGATIVE); METHADONE,URINE NEGATIVE (NEGATIVE); METHAMPHETAMINES,URINE POSITIVE (NEGATIVE)
[2020-09-27 21:11] LABS: AMPHETAMINES,URINE POSITIVE (NEGATIVE); BARBITURATES,URINE NEGATIVE (NEGATIVE); BENZODIAZEPINE,URINE NEGATIVE (NEGATIVE); OPIATES,URINE NEGATIVE (NEGATIVE); OXYCODONE,URINE NEGATIVE (NEGATIVE); PHENCYCLIDINE,URINE NEGATIVE (NEGATIVE); TCA,URINE NEGATIVE (NEGATIVE)
[2020-09-27] MEDS ORDERED: Iopamidol 612 MG/ML 50 ML SDV IVPUSH ONE (21:14)
[2020-09-27] MEDS ORDERED: Iopamidol 612 MG/ML 100 ML Bottle IVPUSH ONE (21:15)
--- NOTE | 2020-09-27 21:24 | CT ---
PROCEDURE INFORMATION: Exam: CT Chest With Contrast; Diagnostic Exam date and time: 09/27/2020 8:41 PM Age: 50 years old Clinical indication: Other: Rlq pain; Ronchi diffuse to all lung lobes TECHNIQUE: Imaging protocol: Diagnostic computed tomography of the chest with contrast. Radiation optimization: All CT scans at this facility use at least one of these dose optimization techniques: automated exposure control; mA and/or kV adjustment per patient size (includes targeted exams where dose is matched to clinical indication); or iterative reconstruction. Contrast material: ISOVUE 300; Contrast volume: 125 ml; Contrast route: INTRAVENOUS (IV); COMPARISON: CR Chest 1V Frontal 05/30/2017 1:19 AM FINDINGS: Lungs: Unremarkable. No consolidation. No masses. Pleural spaces: Unremarkable. No pneumothorax. No pleural effusion. Heart: Unremarkable. No cardiomegaly. No pericardial effusion. Aorta: Unremarkable. No aortic aneurysm. Lymph nodes: Unremarkable. No enlarged lymph nodes. Bones/joints: Unremarkable. No acute fracture. Soft tissues: Unremarkable. IMPRESSION: No acute findings. PROCEDURE INFORMATION: Exam: CT Abdomen And Pelvis With Contrast Exam date and time: 09/27/2020 8:41 PM Age: 50 years old Clinical indication: Other: Rlq pain; Ronchi diffuse to all lung lobes TECHNIQUE: Imaging protocol: Computed tomography of the abdomen and pelvis with contrast. Radiation optimization: All CT scans at this facility use at least one of these dose optimization techniques: automated exposure control; mA and/or kV adjustment per patient size (includes targeted exams where dose is matched to clinical indication); or iterative reconstruction. Contrast material: ISOVUE 300; Contrast volume: 125 ml; Contrast route: INTRAVENOUS (IV); COMPARISON: CR Chest 1V Frontal 05/30/2017 1:19 AM FINDINGS: Liver: Mild hepatomegaly. Gallbladder and bile ducts: There has been a cholecystectomy. Pancreas: Normal. No ductal dilation. Spleen: Mild splenomegaly. Adrenal glands: Normal. No mass. Kidneys and ureters: No renal calcifications or obstructive uropathy. Stomach and bowel: Unremarkable. No obstruction. No mucosal thickening. Appendix: No evidence of appendicitis. Intraperitoneal space: Normal. No significant fluid collection. Vasculature: Unremarkable. No abdominal aortic aneurysm. Lymph nodes: Unremarkable. No enlarged lymph nodes. Urinary bladder: There is mild bladder wall thickening consistent with incomplete distension, chronic outflow obstruction, or cystitis. Reproductive: Unremarkable as visualized. Bones/joints: Unremarkable. No acute fracture. Soft tissues: Soft tissues are normal. IMPRESSION: 1. No evidence of appendicitis. 2. No renal calcifications or obstructive uropathy. 3. Mild hepatosplenomegaly 4. There is mild bladder wall thickening consistent with incomplete distension, chronic outflow obstruction, or cystitis.
[2020-09-27 21:44] LABS: CORONAVIRUS COVID-19 NAA NEGATIVE (NEGATIVE)
== END 2020-09-27 21:28 | disposition left against medical advice (07) ==
LOC: DL.ED 17:31
DX: R10.12 Left upper quadrant pain (principal); F15.10 Other stimulant abuse, uncomplicated; Z20.822 Contact with and (suspected) exposure to COVID-19
CPT/HCPCS: 0240U; 36415; 71260; 74177; 80053; 80305-QW; 80307; 81003; 82150; 83605; 83690; 83735; 85025; 86140; 99283; 99284-25; A9270-GY; Q9967

== ENCOUNTER 2021-03-12 19:29 | Emergency (ER) | payer SELFPAY | END 2021-03-12 21:53 | disposition left against medical advice (07) | LOC: DL.ED 19:29 | DX: Z53.21 Procedure and treatment not carried out due to patient leaving prior to being seen by health care provider (principal) ==

== ENCOUNTER 2021-09-21 19:16 | Emergency (ER) | payer MEDICAID ==
[2021-09-21 20:42] LABS: AMPHETAMINES,URINE NEGATIVE (NEGATIVE); BARBITURATES,URINE NEGATIVE (NEGATIVE); BENZODIAZEPINE,URINE NEGATIVE (NEGATIVE); MDMA (ECSTASY), URINE NEGATIVE (NEGATIVE); METHADONE,URINE NEGATIVE (NEGATIVE); METHAMPHETAMINES,URINE POSITIVE (NEGATIVE); OPIATES,URINE NEGATIVE (NEGATIVE); OXYCODONE,URINE NEGATIVE (NEGATIVE); PHENCYCLIDINE,URINE NEGATIVE (NEGATIVE); TCA,URINE NEGATIVE (NEGATIVE)
[2021-09-21 20:55] LABS: ANION GAP 13.1 mEq/L (7-13)
[2021-09-21 21:37] VITALS: BP 134/92; PULSE 67
== END 2021-09-21 21:32 | disposition home or self-care (01) ==
LOC: DL.ED 19:16
DX: T80.90XA Unspecified complication following infusion and therapeutic injection, initial encounter (principal); K29.00 Acute gastritis without bleeding; J44.9 Chronic obstructive pulmonary disease, unspecified; E66.9 Obesity, unspecified; Z68.43 Body mass index [BMI] 50.0-59.9, adult; Z88.0 Allergy status to penicillin; Z88.8 Allergy status to other drugs, medicaments and biological substances; Z88.5 Allergy status to narcotic agent
CPT/HCPCS: 36415; 80053; 80305-QW; 81003; 81025; 83605; 85025; 99284

== ENCOUNTER 2022-08-04 19:43 | Emergency (ER) | payer MEDICAID ==
[2022-08-04 20:29] VITALS: BP 127/78; PULSE 88
== END 2022-08-04 20:13 | disposition left against medical advice (07) ==
LOC: DL.ED 19:43
DX: Z53.21 Procedure and treatment not carried out due to patient leaving prior to being seen by health care provider (principal)

== ENCOUNTER 2022-10-01 17:47 | Emergency (ER) | payer MEDICAID ==
[2022-10-01 18:05] VITALS: BP 132/81; PULSE 106
[2022-10-01] MEDS ORDERED: Sodium Chloride 0.9% 10 ML Syringe FLUSH PRN (18:13)
[2022-10-01 18:33] LABS: BASOPHILS PERCENT AUTO 0.2 % (0.0-1.0); EOSINOPHILS PERCENT AUTO 0.9 % (1.0-3.0); HEMATOCRIT 42.9 % (37.0-47.0); HEMOGLOBIN 15.2 g/dL (12.0-16.0); MEAN CORPUSCULAR HEMOGLOBIN 30.4 pg (27.0-34.0); MEAN CORPUSCULAR HGB CONC 35.4 g/dL (33.0-35.0); MEAN CORPUSCULAR VOLUME 85.8 fL (80-100); NEUTROPHILS PERCENT AUTO 77.9 % (42.2-75.2); PLATELET COUNT,PLT 78 10^3/uL (150-450); WHITE BLOOD CELL COUNT,WBC 5.4 10^3/uL (5.0-10.0)
[2022-10-01 18:54] LABS: B-TYPE NATRIURETIC PEPTIDE,BNP 18 pg/ml (0-100)
[2022-10-01 18:58] LABS: ALANINE AMINOTRANSFERASE,ALT 124 U/L (14-59); ALBUMIN 3.2 g/dL (3.4-5.0); ALKALINE PHOSPHATASE 144 U/L (46-116); ANION GAP 14.7 mEq/L (7-13); ASPARTATE AMNIOTRANSFERASE,AST 86 U/L (15-37); BILIRUBIN TOTAL 1.3 mg/dL (0.2-1.0); BLOOD UREA NITROGEN,BUN 9 mg/dL (7-18); CALCIUM 8.7 mg/dL (8.5-10.1); CARBON DIOXIDE,CO2 23 mmol/L (21-32); CHLORIDE,CL 98 mmol/L (98-107); POTASSIUM,K 3.7 mmol/L (3.5-5.1); PROTEIN TOTAL,TP 6.8 g/dL (6.4-8.2); SODIUM,NA 132 mmol/L (136-145)
[2022-10-01 19:12] LABS: A/G RATIO 0.89; ESTIMATED GFR 77 mL/min (>=60); GLUCOSE RANDOM 600 mg/dL (70-99); LACTIC ACID 2.8 mmol/L (0.4-2.0)
[2022-10-01 19:13] LABS: C-REACTIVE PROTEIN < 0.2 mg/dL (0.0-0.9)
[2022-10-01] MEDS ORDERED: Insulin Regular, Human 100 Units/ML 3 ML Vial IV ONE (19:37)
[2022-10-01] MEDS ORDERED: Sodium Chloride 0.9% 1,000 ML IV ONE (19:37)
== END 2022-10-01 21:52 | disposition home or self-care (01) ==
LOC: DL.ED 17:47
DX: J01.00 Acute maxillary sinusitis, unspecified (principal); E11.9 Type 2 diabetes mellitus without complications; J20.9 Acute bronchitis, unspecified; F15.10 Other stimulant abuse, uncomplicated; I50.9 Heart failure, unspecified; J45.909 Unspecified asthma, uncomplicated; F17.210 Nicotine dependence, cigarettes, uncomplicated; Z86.16 Personal history of COVID-19; Z88.8 Allergy status to other drugs, medicaments and biological substances; Z88.0 Allergy status to penicillin; Z79.899 Other long term (current) drug therapy
CPT/HCPCS: 36415; 71046; 80053; 82009; 82947; 83605; 83880; 84484; 85025; 86140; 87040; 93005; 96360; 96361; 99291; J1815; J7030; 93010; J3490

== ENCOUNTER 2022-10-26 23:27 | Emergency (ER) | payer MEDICAID ==
[2022-10-26 23:48] LABS: BASOPHILS PERCENT AUTO 0.4 % (0.0-1.0); EOSINOPHILS PERCENT AUTO 0.9 % (1.0-3.0); HEMATOCRIT 44.4 % (37.0-47.0); HEMOGLOBIN 15.6 g/dL (12.0-16.0); LYMPHOCYTES PERCENT AUTO 16.3 % (20.5-50.1); MEAN CORPUSCULAR HEMOGLOBIN 30.5 pg (27.0-34.0); MEAN CORPUSCULAR HGB CONC 35.1 g/dL (33.0-35.0); MEAN CORPUSCULAR VOLUME 86.9 fL (80-100); MONOCYTES PERCENT AUTO 9.3 % (2-8); NEUTROPHILS PERCENT AUTO 73.1 % (42.2-75.2); PLATELET COUNT,PLT 86 10^3/uL (150-450); RED BLOOD CELL COUNT 5.11 10^6/uL (4.2-5.4); WHITE BLOOD CELL COUNT,WBC 7.7 10^3/uL (5.0-10.0)
[2022-10-27 00:01] LABS: KETONES,BLOOD NEGATIVE
[2022-10-27 00:06] LABS: INR 1.1 (0.9-1.2); PROTHROMBIN TIME 11.3 SEC (9.0-12.0); PTT,PARTIAL THROMBOPLSTIN TIME 25.3 SEC (22.0-34.0)
[2022-10-27 00:07] LABS: APPEARANCE,URINE CLEAR (CLEAR); BILIRUBIN,URINE SMALL (NEGATIVE); COLOR,URINE DARK YELLOW (YELLOW); GLUCOSE,URINE NEGATIVE (NEGATIVE); KETONES,URINE 15 (NEGATIVE); LEUKOCYTE ESTERASE,URINE NEGATIVE (NEGATIVE); NITRITE,URINE NEGATIVE (NEGATIVE); OCCULT BLOOD,URINE NEGATIVE (NEGATIVE); PROTEIN,URINE NEGATIVE (NEGATIVE)
[2022-10-27 00:14] LABS: LACTIC ACID 1.6 mmol/L (0.4-2.0)
[2022-10-27 00:14] LABS: AMPHETAMINES,URINE POSITIVE (NEGATIVE); METHAMPHETAMINES,URINE POSITIVE (NEGATIVE)
[2022-10-27 00:15] LABS: BARBITURATES,URINE NEGATIVE (NEGATIVE); BENZODIAZEPINE,URINE NEGATIVE (NEGATIVE); MDMA (ECSTASY), URINE NEGATIVE (NEGATIVE); METHADONE,URINE NEGATIVE (NEGATIVE); OPIATES,URINE NEGATIVE (NEGATIVE); OXYCODONE,URINE NEGATIVE (NEGATIVE); PHENCYCLIDINE,URINE NEGATIVE (NEGATIVE); TCA,URINE NEGATIVE (NEGATIVE)
[2022-10-27 00:18] LABS: ALANINE AMINOTRANSFERASE,ALT 168 U/L (14-59); ALBUMIN 3.6 g/dL (3.4-5.0); ALKALINE PHOSPHATASE 140 U/L (46-116); ANION GAP 16.5 mEq/L (7-13); ASPARTATE AMNIOTRANSFERASE,AST 126 U/L (15-37); BILIRUBIN TOTAL 1.1 mg/dL (0.2-1.0); BLOOD UREA NITROGEN,BUN 10 mg/dL (7-18); BUN/CREATININE RATIO 13.7 (No establ ref range); CALCIUM 9.4 mg/dL (8.5-10.1); CARBON DIOXIDE,CO2 26 mmol/L (21-32); CHLORIDE,CL 108 mmol/L (98-107); CREATININE 0.73 mg/dL (0.55-1.02); ESTIMATED GFR 99 mL/min (>=60); GLUCOSE RANDOM 111 mg/dL (70-99); POTASSIUM,K 4.5 mmol/L (3.5-5.1); PROTEIN TOTAL,TP 7.1 g/dL (6.4-8.2); SODIUM,NA 146 mmol/L (136-145); TSH ULTRASENSITIVE 0.72 uIU/mL (0.36-3.74)
[2022-10-27 00:19] LABS: ETHANOL BLOOD MEDICAL 0 mg/dL (0)
[2022-10-27 01:29] VITALS: BP 127/108; PULSE 71
== END 2022-10-27 02:07 ==
LOC: DL.ED 23:27
DX: G91.1 Obstructive hydrocephalus (principal); M79.81 Nontraumatic hematoma of soft tissue; E87.0 Hyperosmolality and hypernatremia; R74.8 Abnormal levels of other serum enzymes; F15.10 Other stimulant abuse, uncomplicated; I50.9 Heart failure, unspecified; J45.909 Unspecified asthma, uncomplicated; E11.9 Type 2 diabetes mellitus without complications; Z86.16 Personal history of COVID-19; Z88.8 Allergy status to other drugs, medicaments and biological substances; Z88.0 Allergy status to penicillin; Z88.5 Allergy status to narcotic agent; Z79.899 Other long term (current) drug therapy
CPT/HCPCS: 36415; 51702; 70450; 80053; 80305-QW; 80307; 81003; 82009; 82947; 83605; 84443; 84484; 85025; 85610; 85730; 93005; 93010; 99285

== ENCOUNTER 2022-12-05 22:01 | Emergency (ER) | payer MEDICAID ==
[2022-12-05] MEDS ORDERED: Sodium Chloride 0.9% 10 ML Syringe FLUSH PRN (22:18)
[2022-12-05 22:48] LABS: BASOPHILS PERCENT AUTO 0.3 % (0.0-1.0); EOSINOPHILS PERCENT AUTO 2.3 % (1.0-3.0); HEMATOCRIT 41.8 % (37.0-47.0); HEMOGLOBIN 14.3 g/dL (12.0-16.0); LYMPHOCYTES PERCENT AUTO 19.8 % (20.5-50.1); MEAN CORPUSCULAR HGB CONC 34.2 g/dL (33.0-35.0); MEAN CORPUSCULAR VOLUME 90.5 fL (80-100); MONOCYTES PERCENT AUTO 10.1 % (2-8); NEUTROPHILS PERCENT AUTO 67.5 % (42.2-75.2); PLATELET COUNT,PLT 102 10^3/uL (150-450); RED BLOOD CELL COUNT 4.62 10^6/uL (4.2-5.4); WHITE BLOOD CELL COUNT,WBC 6.1 10^3/uL (5.0-10.0)
[2022-12-05 22:59] VITALS: BP 117/72
[2022-12-05 23:01] LABS: PROTHROMBIN TIME 10.4 SEC (9.0-12.0)
[2022-12-05 23:08] LABS: LACTIC ACID 1.2 mmol/L (0.4-2.0)
[2022-12-05] MEDS ORDERED: Albuterol/Ipratropium 3.0-0.5 MG/3 ML Neb Soln NEB ONE ×2 (23:15→23:32)
[2022-12-05 23:30] LABS: ALANINE AMINOTRANSFERASE,ALT 98 U/L (14-59); ALKALINE PHOSPHATASE 159 U/L (46-116); ASPARTATE AMNIOTRANSFERASE,AST 108 U/L (15-37); BILIRUBIN TOTAL 0.5 mg/dL (0.2-1.0); BLOOD UREA NITROGEN,BUN 13 mg/dL (7-18); BUN/CREATININE RATIO 17.3 (No establ ref range); C-REACTIVE PROTEIN 0.25 ng/dL (<=0.30); CALCIUM 8.7 mg/dL (8.5-10.1); CARBON DIOXIDE,CO2 27 mmol/L (21-32); CHLORIDE,CL 104 mmol/L (98-107); CREATININE 0.75 mg/dL (0.55-1.02); EST CRCL DRUG DOSING (CG) 78.95 mL/min; GLUCOSE RANDOM 138 mg/dL (70-99); MAGNESIUM 1.5 mg/dL (1.8-2.4); PROTEIN TOTAL,TP 6.9 g/dL (6.4-8.2); SODIUM,NA 140 mmol/L (136-145); TSH ULTRASENSITIVE 2.71 uIU/mL (0.36-3.74)
[2022-12-05 23:32] LABS: A/G RATIO 0.77; ESTIMATED GFR 96 mL/min (>=60)
[2022-12-05 23:33] LABS: ETHANOL BLOOD MEDICAL < 3 mg/dL (0)
[2022-12-05 23:35] LABS: CORONAVIRUS COVID-19 NAA NEGATIVE (NEGATIVE); INFLUENZA A NAA NEGATIVE (NEGATIVE); INFLUENZA B NAA NEGATIVE (NEGATIVE); RESPIRATORY SYNCYTIAL VIR NAA NEGATIVE (NEGATIVE)
[2022-12-05 23:54] LABS: AMPHETAMINES,URINE NEGATIVE (NEGATIVE); APPEARANCE,URINE CLEAR (CLEAR); BARBITURATES,URINE NEGATIVE (NEGATIVE); BENZODIAZEPINE,URINE NEGATIVE (NEGATIVE); BILIRUBIN,URINE NEGATIVE (NEGATIVE); COLOR,URINE YELLOW (YELLOW); GLUCOSE,URINE NEGATIVE (NEGATIVE); KETONES,URINE NEGATIVE (NEGATIVE); LEUKOCYTE ESTERASE,URINE NEGATIVE (NEGATIVE); MDMA (ECSTASY), URINE NEGATIVE (NEGATIVE); METHADONE,URINE NEGATIVE (NEGATIVE); METHAMPHETAMINES,URINE NEGATIVE (NEGATIVE); NITRITE,URINE NEGATIVE (NEGATIVE); OCCULT BLOOD,URINE NEGATIVE (NEGATIVE); OPIATES,URINE NEGATIVE (NEGATIVE); OXYCODONE,URINE NEGATIVE (NEGATIVE); PH,URINE 5.5 (5.0-9.0); PHENCYCLIDINE,URINE NEGATIVE (NEGATIVE); PROTEIN,URINE NEGATIVE (NEGATIVE); TCA,URINE NEGATIVE (NEGATIVE)
[2022-12-06] MEDS ORDERED: Magnesium Oxide 400 MG Tab PO ONE (00:07)
[2022-12-06] MEDS ORDERED: Azithromycin 250 MG Tab PO ONE (00:27)
[2022-12-06] MEDS ORDERED: methylPREDNISolone Sodium Succinate 125 MG/2 ML SDV IVPUSH ONE (00:29)
== END 2022-12-06 00:58 | disposition home or self-care (01) ==
LOC: DL.ED 22:01
DX: J44.1 Chronic obstructive pulmonary disease with (acute) exacerbation (principal); I63.9 Cerebral infarction, unspecified; E83.42 Hypomagnesemia; R51.9 Headache, unspecified; I50.9 Heart failure, unspecified; Z86.16 Personal history of COVID-19; Z91.148 Patient's other noncompliance with medication regimen for other reason; Z88.0 Allergy status to penicillin; Z88.8 Allergy status to other drugs, medicaments and biological substances; Z20.822 Contact with and (suspected) exposure to COVID-19
CPT/HCPCS: 0241U; 36415; 70450; 71045; 80053; 80305-QW; 80307; 81003; 82140; 82607; 82947; 83605; 83735; 83880; 84443; 85025; 85610; 86140; 93005; 93010; 96374; 99284; 99285-25; A9270-GY; J2930; J3490; J7620-GY

== ENCOUNTER 2023-01-07 12:15 | Emergency (ER) | payer MEDICAID ==
[2023-01-07 12:58] VITALS: BP 128/76; PULSE 82
[2023-01-07 13:08] LABS: BASOPHILS PERCENT AUTO 0.2 % (0.0-1.0); EOSINOPHILS PERCENT AUTO 1.4 % (1.0-3.0); HEMATOCRIT 41.9 % (37.0-47.0); HEMOGLOBIN 14.3 g/dL (12.0-16.0); LYMPHOCYTES PERCENT AUTO 14.9 % (20.5-50.1); MEAN CORPUSCULAR HGB CONC 34.1 g/dL (33.0-35.0); MEAN CORPUSCULAR VOLUME 90.7 fL (80-100); MONOCYTES PERCENT AUTO 7.4 % (2-8); NEUTROPHILS PERCENT AUTO 76.1 % (42.2-75.2); PLATELET COUNT,PLT 100 10^3/uL (150-450); RED BLOOD CELL COUNT 4.62 10^6/uL (4.2-5.4); WHITE BLOOD CELL COUNT,WBC 6.4 10^3/uL (5.0-10.0)
[2023-01-07 13:31] LABS: INR 1.1 (0.9-1.2)
[2023-01-07 13:35] LABS: A/G RATIO 0.78; ALANINE AMINOTRANSFERASE,ALT 102 U/L (14-59); ALBUMIN 2.9 g/dL (3.4-5.0); ALKALINE PHOSPHATASE 124 U/L (46-116); ANION GAP 12.9 mEq/L (7-13); ASPARTATE AMNIOTRANSFERASE,AST 112 U/L (15-37); BILIRUBIN TOTAL 0.5 mg/dL (0.2-1.0); BLOOD UREA NITROGEN,BUN 15 mg/dL (7-18); BUN/CREATININE RATIO 16.7 (No establ ref range); C-REACTIVE PROTEIN 0.27 ng/dL (<=0.30); CALCIUM 8.6 mg/dL (8.5-10.1); CARBON DIOXIDE,CO2 27 mmol/L (21-32); CHLORIDE,CL 103 mmol/L (98-107); ESTIMATED GFR 77 mL/min (>=60); ETHANOL BLOOD MEDICAL < 3 mg/dL (0); GLUCOSE RANDOM 225 mg/dL (70-99); MAGNESIUM 1.5 mg/dL (1.8-2.4); POTASSIUM,K 3.9 mmol/L (3.5-5.1); PROTEIN TOTAL,TP 6.6 g/dL (6.4-8.2); SODIUM,NA 139 mmol/L (136-145); TSH ULTRASENSITIVE 0.91 uIU/mL (0.36-3.74)
== END 2023-01-07 15:10 | disposition home or self-care (01) ==
LOC: DL.ED 12:15
DX: G45.9 Transient cerebral ischemic attack, unspecified (principal); E83.42 Hypomagnesemia; J44.9 Chronic obstructive pulmonary disease, unspecified; E78.00 Pure hypercholesterolemia, unspecified; I50.9 Heart failure, unspecified; Z86.16 Personal history of COVID-19; Z88.6 Allergy status to analgesic agent; Z88.0 Allergy status to penicillin; Z88.5 Allergy status to narcotic agent; Z79.899 Other long term (current) drug therapy
CPT/HCPCS: 36415; 70450; 80053; 80307; 83605; 83735; 84443; 85025; 85610; 86140; 99285

== ENCOUNTER 2023-03-22 12:02 | Emergency (ER) | payer MEDICAID ==
[2023-03-22] MEDS ORDERED: Sodium Chloride 0.9% 10 ML Syringe FLUSH PRN (12:33)
[2023-03-22 12:55] LABS: BASOPHILS PERCENT AUTO 0.2 % (0.0-1.0); EOSINOPHILS PERCENT AUTO 2.6 % (1.0-3.0); HEMATOCRIT 42.5 % (37.0-47.0); HEMOGLOBIN 14.4 g/dL (12.0-16.0); LYMPHOCYTES PERCENT AUTO 27.3 % (20.5-50.1); MEAN CORPUSCULAR HEMOGLOBIN 30.5 pg (27.0-34.0); MEAN CORPUSCULAR HGB CONC 33.9 g/dL (33.0-35.0); MONOCYTES PERCENT AUTO 8.8 % (2-8); NEUTROPHILS PERCENT AUTO 61.1 % (42.2-75.2); PLATELET COUNT,PLT 83 10^3/uL (150-450); RED BLOOD CELL COUNT 4.72 10^6/uL (4.2-5.4); WHITE BLOOD CELL COUNT,WBC 4.6 10^3/uL (5.0-10.0)
[2023-03-22 13:13] LABS: INR 1.2 (0.9-1.2); PROTHROMBIN TIME 12.1 SEC (9.0-12.0); PTT,PARTIAL THROMBOPLSTIN TIME 27.6 SEC (22.0-34.0)
[2023-03-22 13:18] LABS: ALANINE AMINOTRANSFERASE,ALT 83 U/L (14-59); ALBUMIN 2.9 g/dL (3.4-5.0); ALKALINE PHOSPHATASE 128 U/L (46-116); ANION GAP 11.1 mEq/L (7-13); ASPARTATE AMNIOTRANSFERASE,AST 97 U/L (15-37); BILIRUBIN TOTAL 0.6 mg/dL (0.2-1.0); BLOOD UREA NITROGEN,BUN 17 mg/dL (7-18); BUN/CREATININE RATIO 18.9 (No establ ref range); CALCIUM 8.6 mg/dL (8.5-10.1); CARBON DIOXIDE,CO2 29 mmol/L (21-32); CHLORIDE,CL 105 mmol/L (98-107); GLUCOSE RANDOM 79 mg/dL (70-99); LACTIC ACID 1.1 mmol/L (0.4-2.0); POTASSIUM,K 4.1 mmol/L (3.5-5.1); PROTEIN TOTAL,TP 6.9 g/dL (6.4-8.2); SODIUM,NA 141 mmol/L (136-145)
[2023-03-22 13:24] LABS: A/G RATIO 0.73; ESTIMATED GFR 77 mL/min (>=60)
[2023-03-22 13:25] LABS: B-TYPE NATRIURETIC PEPTIDE,BNP 27 pg/ml (0-100); C-REACTIVE PROTEIN < 0.50 ng/dL (<=0.50)
[2023-03-22 13:26] LABS: ETHANOL BLOOD MEDICAL < 3 mg/dL (0)
[2023-03-22 13:38] LABS: CORONAVIRUS COVID-19 NAA NEGATIVE (NEGATIVE); INFLUENZA A NAA NEGATIVE (NEGATIVE); INFLUENZA B NAA NEGATIVE (NEGATIVE); RESPIRATORY SYNCYTIAL VIR NAA NEGATIVE (NEGATIVE)
[2023-03-22 13:42] VITALS: BP 111/75; PULSE 56
[2023-03-22 13:48] LABS: APPEARANCE,URINE CLEAR (CLEAR); BILIRUBIN,URINE NEGATIVE (NEGATIVE); COLOR,URINE YELLOW (YELLOW); GLUCOSE,URINE NEGATIVE (NEGATIVE); KETONES,URINE NEGATIVE (NEGATIVE); LEUKOCYTE ESTERASE,URINE NEGATIVE (NEGATIVE); NITRITE,URINE NEGATIVE (NEGATIVE); OCCULT BLOOD,URINE NEGATIVE (NEGATIVE); PROTEIN,URINE NEGATIVE (NEGATIVE)
[2023-03-22 13:49] LABS: AMPHETAMINES,URINE NEGATIVE (NEGATIVE); BARBITURATES,URINE NEGATIVE (NEGATIVE); BENZODIAZEPINE,URINE NEGATIVE (NEGATIVE); MDMA (ECSTASY), URINE NEGATIVE (NEGATIVE); METHADONE,URINE NEGATIVE (NEGATIVE); METHAMPHETAMINES,URINE NEGATIVE (NEGATIVE); OPIATES,URINE NEGATIVE (NEGATIVE); PHENCYCLIDINE,URINE NEGATIVE (NEGATIVE); TCA,URINE NEGATIVE (NEGATIVE)
[2023-03-22 13:50] LABS: OXYCODONE,URINE POSITIVE (NEGATIVE)
[2023-03-22] MEDS ORDERED: Famotidine 20 MG Tab PO ONE (15:09)
== END 2023-03-22 16:35 | disposition home or self-care (01) ==
LOC: DL.ED 12:02
DX: T78.3XXA Angioneurotic edema, initial encounter (principal); R60.0 Localized edema; F17.210 Nicotine dependence, cigarettes, uncomplicated; J44.9 Chronic obstructive pulmonary disease, unspecified; I10 Essential (primary) hypertension; E11.9 Type 2 diabetes mellitus without complications; Z86.73 Personal history of transient ischemic attack (TIA), and cerebral infarction without residual deficits; Z86.16 Personal history of COVID-19; Z79.4 Long term (current) use of insulin; Z79.899 Other long term (current) drug therapy; Z88.5 Allergy status to narcotic agent; Z88.6 Allergy status to analgesic agent; Z88.0 Allergy status to penicillin
CPT/HCPCS: 0241U; 36415; 71045; 80053; 80305; 80307; 81003; 83605; 83880; 84145; 84484; 85025; 85610; 85730; 86140; 99284; A9270; J3490

== ENCOUNTER 2023-11-21 08:08 | Day surgery (SDC) | payer MEDICAID ==
[~2023-11-21 08:08] MED LIST changes: +Acetaminophen 325 MG Tab PO PRN; +Acetaminophen/Codeine 300-30 MG Tab PO PRN; +Ondansetron 4 MG/2 ML SDV IVPUSH PRN
[2023-11-21] MEDS: Tropicamide 1% Ophth Soln 15 ML Bottle EYELF ONE (08:51)
[2023-11-21] MEDS: Moxifloxacin 0.5% Ophth Soln 3 ML Bottle EYELF ONE (08:52)
[2023-11-21] MEDS: Povidone-Iodine 5% Sterile Ophth Soln 30 ML Bottle EYELF ONE (08:53)
[2023-11-21] MEDS: Phenylephrine 10% Ophth Soln 5 ML Bot EYELF ONE (08:54)
[2023-11-21] MEDS: Proparacaine 0.5% Ophth Soln 15 ML Bottle EYELF ONE ×2 (08:55→09:10)
[2023-11-21] MEDS: Cataract Ophth Solution EYELF ONE (08:56)
[2023-11-21] MEDS: Timolol Maleate 0.5% Ophth Soln 5 ML Bottle EYELF ONE (08:56)
[2023-11-21] MEDS: Povidone-Iodine 5% Sterile Ophth Soln 30 ML Bottle ONE (09:11)
[2023-11-21] MEDS: Apraclonidine 0.5% Ophth Soln 5 ML Bot EYELF ONE (09:11)
[2023-11-21] MEDS: Diclofenac Sodium 0.1% Ophth Soln 5 ML Bottle EYELF ONE (09:19)
[2023-11-21] MEDS: Dexamethasone/Neomycin/Polymyxin B Ophth Oint 3.5 GM Tube EYELF ONE (09:19)
[2023-11-21] MEDS: Lidocaine 1% 30 ML SDV ONE (09:20)
[2023-11-21] MEDS: Vancomycin 500 MG SDV EYELF ONE (09:20)
[2023-11-21 10:22] VITALS: BP 108/67; PULSE 65
== END 2023-11-21 10:20 | disposition home or self-care (01) ==
LOC: DL.SDS 08:08
PROVIDERS: ATTEND Ophthalmology
DX: E11.36 Type 2 diabetes mellitus with diabetic cataract (principal); H25.812 Combined forms of age-related cataract, left eye; J44.9 Chronic obstructive pulmonary disease, unspecified; E78.5 Hyperlipidemia, unspecified; E66.01 Morbid (severe) obesity due to excess calories; F17.210 Nicotine dependence, cigarettes, uncomplicated; Z79.4 Long term (current) use of insulin; Z79.899 Other long term (current) drug therapy; Z88.8 Allergy status to other drugs, medicaments and biological substances; Z88.0 Allergy status to penicillin; Z68.41 Body mass index [BMI] 40.0-44.9, adult
CPT/HCPCS: 00142; 82947; A9270-GY; J3370; J3490; V2632

== ENCOUNTER 2024-05-14 16:03 | Emergency (ER) | payer MEDICAID ==
[2024-05-14 18:09] VITALS: BP 118/62; PULSE 73
== END 2024-05-14 18:01 | disposition home or self-care (01) ==
LOC: DL.ED 16:03
DX: M17.11 Unilateral primary osteoarthritis, right knee (principal); I10 Essential (primary) hypertension; K21.9 Gastro-esophageal reflux disease without esophagitis; J45.909 Unspecified asthma, uncomplicated; E11.9 Type 2 diabetes mellitus without complications; Z79.82 Long term (current) use of aspirin; Z88.0 Allergy status to penicillin; Z88.8 Allergy status to other drugs, medicaments and biological substances; Z79.4 Long term (current) use of insulin; Z79.899 Other long term (current) drug therapy; Z86.16 Personal history of COVID-19; Z90.49 Acquired absence of other specified parts of digestive tract
CPT/HCPCS: 73562-RT; 99283

== ENCOUNTER 2024-07-22 22:51 | Emergency (ER) | payer MEDICAID ==
[2024-07-22 22:50] VITALS: BP 131/70; PULSE 85
[2024-07-22] MEDS: Take Home: Sulfamethoxazole/Trimethoprim 800-160 MG Tab, 6 Tab Pack PO ONE (23:01)
[2024-07-22] MEDS: Bacitracin Oint 1 GM U/D Packet TOP ONE (23:05)
[2024-07-22] MEDS: Diphtheria,Pertussis(Acell),Tetanus Vaccine 0.5 ML Syringe IM ONE (23:05)
== END 2024-07-22 23:14 | disposition home or self-care (01) ==
LOC: DL.ED 22:51
DX: S91.332A Puncture wound without foreign body, left foot, initial encounter (principal); I10 Essential (primary) hypertension; E11.9 Type 2 diabetes mellitus without complications; K21.9 Gastro-esophageal reflux disease without esophagitis; J44.89 Other specified chronic obstructive pulmonary disease; Z88.5 Allergy status to narcotic agent; Z88.0 Allergy status to penicillin; Z79.899 Other long term (current) drug therapy; Z79.4 Long term (current) use of insulin; Z79.811 Long term (current) use of aromatase inhibitors; Z86.16 Personal history of COVID-19; Z90.49 Acquired absence of other specified parts of digestive tract; W25.XXXA Contact with sharp glass, initial encounter
CPT/HCPCS: 12001; 90471; 90715; 99283; A9270

== ENCOUNTER 2024-11-10 08:44 | Emergency (ER) | payer MEDICAID ==
[2024-11-10 10:05] LABS: BASOPHILS PERCENT AUTO 0.2 % (0.0-1.0); EOSINOPHILS PERCENT AUTO 0.6 % (1.0-3.0); LYMPHOCYTES PERCENT AUTO 17.0 % (20.5-50.1); MONOCYTES PERCENT AUTO 7.7 % (2-8); NEUTROPHILS PERCENT AUTO 74.5 % (42.2-75.2); PLATELET COUNT,PLT 58 10^3/uL (150-450); RED BLOOD CELL COUNT 4.21 10^6/uL (4.2-5.4); WHITE BLOOD CELL COUNT,WBC 4.7 10^3/uL (5.0-10.0)
[2024-11-10 10:37] LABS: A/G RATIO 0.97; ALANINE AMINOTRANSFERASE,ALT 39.0 U/L (14-59); ASPARTATE AMNIOTRANSFERASE,AST 68.0 U/L (15-37); BILIRUBIN DIRECT 0.5 mg/dL (0.0-0.2); BILIRUBIN INDIRECT 1.1; BILIRUBIN TOTAL 1.6 mg/dL (0.2-1.0); BLOOD UREA NITROGEN,BUN 17.0 mg/dL (7-18); CARBON DIOXIDE,CO2 26.0 mmol/L (21-32); CHLORIDE,CL 108.0 mmol/L (98-107); CREATININE 0.77 mg/dL (0.55-1.02); EST CRCL DRUG DOSING (CG) 72.12 mL/min; ESTIMATED GFR 92.0 mL/min (>=60); GLUCOSE RANDOM 83.0 mg/dL (70-99); POTASSIUM,K 4.8 mmol/L (3.5-5.1); PROTEIN TOTAL,TP 6.7 g/dL (6.4-8.2); SODIUM,NA 141.0 mmol/L (136-145)
[2024-11-10 12:02] LABS: APPEARANCE,URINE CLEAR (CLEAR); GLUCOSE,URINE NEGATIVE (NEGATIVE); OCCULT BLOOD,URINE NEGATIVE (NEGATIVE)
[2024-11-10 12:40] LABS: EPITHELIAL CELLS,URINE MODERATE /HPF (NOT SEEN)
[2024-11-10 13:10] VITALS: BP 139/56; PULSE 86
== END 2024-11-10 13:00 | disposition home or self-care (01) ==
LOC: DL.ED 08:44
DX: J44.1 Chronic obstructive pulmonary disease with (acute) exacerbation (principal); R53.1 Weakness; I10 Essential (primary) hypertension; F17.210 Nicotine dependence, cigarettes, uncomplicated; E11.9 Type 2 diabetes mellitus without complications; Z88.6 Allergy status to analgesic agent; Z88.0 Allergy status to penicillin; Z88.5 Allergy status to narcotic agent; Z79.899 Other long term (current) drug therapy; Z79.4 Long term (current) use of insulin; Z86.73 Personal history of transient ischemic attack (TIA), and cerebral infarction without residual deficits; Z90.49 Acquired absence of other specified parts of digestive tract
CPT/HCPCS: 36415; 71045; 80048; 80076; 81001; 84484; 85025; 87040; 93005; 94640; 99285; J7030; J7620; 93010; 99284; A9270-GY

== ENCOUNTER 2025-02-16 09:03 | Emergency (ER) | payer MEDICAID ==
[~2025-02-16 09:03] MED LIST changes: -Acetaminophen 325 MG Tab PO PRN; -Acetaminophen/Codeine 300-30 MG Tab PO PRN; -Ondansetron 4 MG/2 ML SDV IVPUSH PRN
[2025-02-16 09:37] LABS: BASOPHILS PERCENT AUTO 0.2 % (0.0-1.0); EOSINOPHILS PERCENT AUTO 1.3 % (1.0-3.0); LYMPHOCYTES PERCENT AUTO 20.1 % (20.5-50.1); MONOCYTES PERCENT AUTO 10.6 % (2-8); NEUTROPHILS PERCENT AUTO 67.8 % (42.2-75.2); PLATELET COUNT,PLT 54 10^3/uL (150-450); RED BLOOD CELL COUNT 3.93 10^6/uL (4.2-5.4); WHITE BLOOD CELL COUNT,WBC 4.5 10^3/uL (5.0-10.0)
[2025-02-16 10:00] LABS: ALANINE AMINOTRANSFERASE,ALT 34 U/L (14-59); ASPARTATE AMNIOTRANSFERASE,AST 48 U/L (15-37); BILIRUBIN TOTAL 1.1 mg/dL (0.2-1.0); BLOOD UREA NITROGEN,BUN 39 mg/dL (7-18); CARBON DIOXIDE,CO2 28 mmol/L (21-32); CHLORIDE,CL 105 mmol/L (98-107); CREATININE 1.86 mg/dL (0.55-1.02); GLUCOSE RANDOM 85 mg/dL (70-99); INR 1.1 (0.9-1.2); POTASSIUM,K 5.5 mmol/L (3.5-5.1); PROTEIN TOTAL,TP 7.0 g/dL (6.4-8.2); PTT,PARTIAL THROMBOPLSTIN TIME 25.0 SEC (22.0-34.0); SODIUM,NA 139 mmol/L (136-145)
[2025-02-16 10:02] LABS: A/G RATIO 0.79; ESTIMATED GFR 32 mL/min (>=60)
[2025-02-16] MEDS: Iopamidol 755 Mg/ML 100 ML Bottle IVPUSH ONE (10:45)
[2025-02-16 10:51] LABS: APPEARANCE,URINE CLEAR (CLEAR); GLUCOSE,URINE NEGATIVE (NEGATIVE); OCCULT BLOOD,URINE NEGATIVE (NEGATIVE)
[2025-02-16 12:28] VITALS: BP 147/59; PULSE 81
== END 2025-02-16 12:50 ==
LOC: DL.ED 09:03
DX: G45.9 Transient cerebral ischemic attack, unspecified (principal); I10 Essential (primary) hypertension; J44.89 Other specified chronic obstructive pulmonary disease; K21.9 Gastro-esophageal reflux disease without esophagitis; E11.9 Type 2 diabetes mellitus without complications; Z90.49 Acquired absence of other specified parts of digestive tract; Z88.0 Allergy status to penicillin; Z88.5 Allergy status to narcotic agent; Z88.6 Allergy status to analgesic agent; Z79.4 Long term (current) use of insulin; Z79.899 Other long term (current) drug therapy
CPT/HCPCS: 36415; 70450; 70496; 70498; 80053; 81003; 84484; 85025; 85610; 85730; 93005; 93010; 99285; 99291; C1758; Q9967